=== PATIENT | male | born 1985 ===

== ENCOUNTER 2020-07-19 12:13 | Outpatient (REF) | payer MEDICAID, SELFPAY | END 2020-07-19 12:14 | disposition home or self-care (01) | LOC: HO.LAB 12:13 | PROVIDERS: Visit Provider Internal Medicine | DX: Z12.31 Encounter for screening mammogram for malignant neoplasm of breast (principal) | CPT/HCPCS: 36415; C9803; U0003 ==

== ENCOUNTER 2023-07-02 17:51 | Outpatient (REF) | payer MEDICAID, SELFPAY | END 2023-07-02 17:52 | disposition home or self-care (01) | LOC: HO.HHCLNP 17:51 | PROVIDERS: Visit Provider Student in an Organized Health Care Education/Training Program | DX: L02.91 Cutaneous abscess, unspecified (principal) | CPT/HCPCS: 87070; 87147; 87205 ==

== ENCOUNTER 2023-07-22 15:15 | Outpatient (AMB) | payer MEDICAID, SELFPAY ==
--- NOTE | 2023-07-22 15:25 | MHC.OFFVIS ---
Intake Intake Visit Reasons: Hidradenitis suppurativa Intake Note: This patient presents for an assessment for hidradenitis suppurativa. Patient c/o; left buttock, reports taking 2 rounds of abx. Labor Relations Representative Required: No Accompanied by: Self / Same As Patient Allergies iodine [IODINE] Allergy (Unknown, Unverified 07/22/23 15:32) THROAT ITCHY, itchiness ENVIRONMENTAL Allergy (Unknown, Uncoded 07/22/23 15:32) RESP SYMPTOMS SHELLFISH Allergy (Unknown, Uncoded 07/22/23 15:32) THROAT ITCHY shellfish Allergy (Unknown, Uncoded 07/22/23 15:32) itchiness Medication List - Last Reconciled 07/22/23 by Maurisio Latif MD albuterol sulfate 90 mcg/actuation (Ventolin HFA) 2 puffs inhalation Q4-6H PRN doxycycline hyclate 100 mg PO DAILY fluticasone propion-salmeterol 250-50 mcg/dose (Advair Diskus) 1 ea inhalation BID metronidazole 500 mg PO TID sulfamethoxazole-trimethoprim 800-160 mg 1 tab PO BID HPI Hidradenitis suppurativa HPI Details 38-year-old male referred for hidradenitis suppurativa. He has known hidradenitis for over 10 years. He has had multiple surgeries on his buttocks for this He says that he has had recurrence of his hidradenitis each time. He has had this chronic inflammation on the left side of his buttock with drainage for several weeks now. He describes having surgeries on this same site with Dr. Asher Shen in [place] in the past. He has not a diabetic but he has obesity. [facility] Medical History (Updated 07/22/23 @ 15:45 by Maurisio Latif MD) Hidradenitis suppurativa Morbid obesity Review of Systems Const Denies chills and Denies fever(s) Card Denies chest pain, Denies dyspnea and Denies dyspnea on exertion Resp Denies cough, Denies dyspnea and Denies dyspnea on exertion GI Denies hematochezia and Denies change in bowel habits Denies hematuria and Denies difficulty urinating Musc Denies back pain and Denies limited range of motion Neuro Denies focal weakness and Denies convulsions Psych Denies depression and Denies mood swings Physical Exam Const Other: Appears morbidly obese General: comfortable and no acute distress Orientation/consciousness: patient oriented x3 Neck Neck: Yes no lymphadenopathy Resp Auscultation: clear to auscultation bilaterally Cardio Rhythm: regular rhythm GI Palpation (GI): Soft to palpation, nontender and no guarding Skin Other: He has stigmata of hidradenitis with pigmentation of old scars on the groin he would on the left buttock area is note of a wide area of induration with multiple sinuses, scanty drainage on this sinuses, no fluctuance, with skin edema Neuro General: patient oriented x3 Assessment & Plan Assessment & Plan (1) Hidradenitis suppurativa: Code(s): L73.2 - Hidradenitis suppurativa Plan: He has severe hidradenitis of the left buttock area. I told him at this time that the area appears to be severely inflamed and indurated. This may not be a good time to excise as we may be forced to remove a large area of the buttock and subcutaneous fat. He will be prone to skin breakdown and poor wound healing. I told him that I would try to control the inflammatory process 1st with doxycycline. He is to stop his other antibiotic. He is to do warm soaks to the area. I will see him again in the office in about 3 weeks to see how he is doing. Currently there are no abscesses that need to be drained. Medications: New doxycycline hyclate 100 mg PO DAILY 14 caps 0RF Coding Level of Care Code New Pt Level 3 (52514) Diagnoses Hidradenitis suppurativa L73.2
== END 2023-07-22 15:45 | disposition home or self-care (01) ==
PROVIDERS: PCP Family Medicine; Referring Provider Family Medicine; Visit Provider Surgery
DX: L73.2 Hidradenitis suppurativa (principal)
CPT/HCPCS: 99203

== ENCOUNTER → 2023-07-22 15:15 | Outpatient (BNVA) | payer MEDICAID, SELFPAY | PROVIDERS: PCP Family Medicine; Visit Provider Surgery | DX: L73.2 Hidradenitis suppurativa (principal) | CPT/HCPCS: 99202 ==

== ENCOUNTER 2023-08-12 09:13 | Outpatient (AMB) | payer MEDICAID, SELFPAY ==
--- NOTE | 2023-08-12 09:14 | MHC.OFFVIS ---
Intake Vital Signs 08/12/23 09:18 BP 126/71 Blood Pressure Location Rt brachial Position Sitting Pulse 122 H Intake Visit Reasons: Hidradenitis suppurativa, 3 wk follow up Intake Note: This patient presents for a three week follow-up assessment for hidradenitis suppurativa. Patient c/o; reports no changes, reports no improvement, reports is taking doxycycline. 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 Accompanied by: Self / Same As Patient Allergies iodine [IODINE] Allergy (Unknown, Unverified 08/12/23 09:19) THROAT ITCHY, itchiness ENVIRONMENTAL Allergy (Unknown, Uncoded 08/12/23 09:19) RESP SYMPTOMS SHELLFISH Allergy (Unknown, Uncoded 08/12/23 09:19) THROAT ITCHY shellfish Allergy (Unknown, Uncoded 08/12/23 09:19) itchiness Medication List - Last Reconciled 08/12/23 by Maurisio Latif MD albuterol sulfate 90 mcg/actuation (Ventolin HFA) 2 puffs inhalation Q4-6H PRN doxycycline hyclate 100 mg PO DAILY fluticasone propion-salmeterol 250-50 mcg/dose (Advair Diskus) 1 ea inhalation BID metronidazole 500 mg PO TID sulfamethoxazole-trimethoprim 800-160 mg 1 tab PO BID HPI Hidradenitis suppurativa, 3 wk follow up HPI Details 38-year-old male here for follow-up for hidradenitis suppurative of this buttock. He has had a long history of this. He has undergone surgeries in [place] in the past for both the left and right buttocks with Dr. Asher Shen. He says that he has had recurrent pain and swelling on the left buttock the past couple of years. He feels that this has been worsening with regards to the extent of the swelling. He would periodically have significant swelling and drainage from the left buttock. He is aware that a wide area of the left buttock that gets swollen and indurated. [facility] Medical History Hidradenitis suppurativa Morbid obesity Review of Systems Const Denies chills and Denies fever(s) Card Denies chest pain, Denies dyspnea and Denies dyspnea on exertion Resp Denies cough, Denies dyspnea and Denies dyspnea on exertion GI Denies hematochezia and Denies change in bowel habits Denies hematuria and Denies difficulty urinating Musc Denies back pain and Denies limited range of motion Neuro Denies focal weakness and Denies convulsions Psych Denies depression and Denies mood swings Physical Exam Vital Signs: Last Vital Signs Pulse 122 H 08/12/23 09:18 BP 126/71 08/12/23 09:18 Const Other: Morbidly obese General: comfortable and no acute distress Orientation/consciousness: patient oriented x3 Neck Neck: Yes no lymphadenopathy Resp Auscultation: clear to auscultation bilaterally Cardio Rhythm: regular rhythm GI Palpation (GI): Soft to palpation, nontender and no guarding Back/Spine/Pelvis Other: On the left buttock is note of a wide area of induration with multiple sinuses there has no acute fluctuance; this area involves more than 12 cm long and about cm wide Neuro General: patient oriented x3 Assessment & Plan Assessment & Plan (1) Hidradenitis suppurativa: Code(s): L73.2 - Hidradenitis suppurativa Plan: He has a wide area of hidradenitis suppurativa on the left buttock as described above. He says that this recurrent swelling and drainage has been worsening over the years. He wants to proceed with re-excision. I had a long discussion with him about the technique of excision under local anesthesia. I told him that since the area is very wide, we may have to leave an open wound and debride as much as possible. I discussed with him the other risks of bleeding, infections, prolonged healing time, postop pain as well as the inherent risks of anesthesia. I explained to him that he will require intensive wound care with an open wound postoperatively. He will need to have frequent visits in the office for this He says he is understanding of the above and wants to proceed We will try to retrieve his records from [facility] as well. Coding Level of Care Code Est Pt Level 4 (75252) Diagnoses Hidradenitis suppurativa L73.2
[2023-08-12 09:18] VITALS: BP 126/71; PULSE 122
== END 2023-08-12 09:30 | disposition home or self-care (01) ==
PROVIDERS: PCP Family Medicine; Visit Provider Surgery
DX: L73.2 Hidradenitis suppurativa (principal)
CPT/HCPCS: 99214

== ENCOUNTER → 2023-08-12 09:13 | Outpatient (BNVA) | payer MEDICAID, SELFPAY | PROVIDERS: PCP Family Medicine; Visit Provider Surgery | DX: L73.2 Hidradenitis suppurativa (principal) | CPT/HCPCS: 99212 ==

== ENCOUNTER 2023-10-01 09:05 | Day surgery (SDC) | payer MEDICAID, SELFPAY ==
[2023-10-01] VITALS (13 sets, daily range): BP systolic 107–147; BP diastolic 54–89; PULSE 93–100; RESP 16–20; TEMP 36.3–37.1; O2SAT 94–98; BMI 43.2
--- NOTE | 2023-10-01 10:14 | PC.NURSE ---
Patient arrived to preop chewing gum. Spit out immediately. Dr. Gibson made aware. Okay per him, May proceed with surgery with no delays.
[2023-10-01] MEDS: Lactated Ringers 1,000 ML 100 ML IVCONT (10:40)
--- NOTE | 2023-10-01 10:55 | HO.ANESPROP2 ---
[facility] Active Problems Active Problems: All Active Problems (Updated 09/28/23 @ 10:51 by Chelsie Moffett RN) Hidradenitis suppurativa (Acute) Morbid obesity (Acute) Past Medical History Medical History (Updated 09/28/23 @ 10:51 by Chelsie Moffett RN) Asthma Hidradenitis suppurativa Morbid obesity Surgical History Surgical History History of surgery Hx of hernia repair History of Problems with Anesthesia: No Social History Social History Patient Tobacco Use Status: Former Tobacco user Quit Date: 2010 Tobacco use type: Cigarette Years Smoked: 10 Smoked in Last 30 Days: No Use of substances other than those prescribed or required for medical reasons: No Are you DNR?: No Advance Directives: No Advance Directives Information Provided: Yes Meds Allergies Allergy/AdvReac Type Severity Reaction Status Date / Time environmental allergies Allergy Intermediate respiratory Verified 10/01/23 09:41 symptoms iodine [IODINE] Allergy Intermediate throat Verified 10/01/23 09:41 itching shellfish derived Allergy Intermediate throat Verified 10/01/23 09:41 itching Active Medications: Current Medications Albuterol Sulfate (Albuterol Sulfate (0.083%) 2.5 Mg/3 Ml Vial.Neb) 2.5 mg INHALE ONCE PRN PRN Reason: Shortness of Breath/Wheezing Fentanyl (Fentanyl Citrate/Pf 100 Mcg/2 Ml Vial) 25 mcg IVPUSH Q5M PRN; Protocol PRN Reason: Pain, Moderate(Pain Scale 4-6) Stop: 10/01/23 14:40 Lactated Ringer's (Lr) 1,000 mls @ 100 mls/hr IVCONT .Q10H SIRENA Last Admin: 10/01/23 10:40 Dose: 100 mls/hr Ondansetron HCl (Ondansetron Hcl 4 Mg/2 Ml Vial) 4 mg IVPUSH ONCE PRN PRN Reason: Nausea and Vomiting Stop: 10/01/23 14:40 Home Medications ?Medication ?Instructions ?Recorded ?Confirmed ?Last Taken ?Type albuterol sulfate 90 mcg/actuation 2 puff inhalation Q4-6H PRN dyspnea 07/22/23 10/01/23 10/01/23 History aerosol inhaler (Ventolin HFA) fluticasone 250 mcg-salmeterol 50 1 ea inhalation BID 07/22/23 10/01/23 Unknown History mcg/dose blistr powdr for inhalation (Advair Diskus) colchicine 0.6 mg tablet 0.6 mg PO BID 10/01/23 10/01/23 Unknown History indomethacin 50 mg capsule 50 mg PO BID-TID 10/01/23 10/01/23 Unknown History Exam Height,Weight and Vital Signs: Height 6 ft Weight 144.424 kg Last Vital Signs Temp 98.7 F 10/01/23 10:01 Pulse 100 10/01/23 10:01 Resp 16 10/01/23 10:01 BP 147/89 H 10/01/23 10:01 Pulse Ox 97 10/01/23 10:01 O2 Del Method Room Air 10/01/23 10:01 Airway Mallampati Class: III TM Dist: >3cm Loose/Missing/Broken Teeth: No Heart: rrr Lungs: clear Assessment and Plan Final Anesthetic Review History of Problems with Anesthesia: No Final Preanesthetic Review: No Changes in Pt Med Stat, Meds/Allgs Chart Reviewed, Consent Obtained/Reviewed and Anes Risks/Benef Reviewed Patient Risk: Intermediate Procedure Risk: Low Anesthetic Plan Anesthetic Plan: GA Disposition: Standard PACU
[2023-10-01] MEDS: fentaNYL citrate/PF 100 MCG/2 ML VIAL 25 MCG IVPUSH ×4 (13:25→13:40)
--- NOTE | 2023-10-01 13:39 | W.PM.OPN ---
Operative Note Operative Note Date of Service: 10/01/23 Narrative: Preop diagnosis: Severe hidradenitis suppurativa, left buttock Postop diagnosis: The same Procedure: Excision and debridement of hidradenitis suppurativa, left buttock Surgeon: Maurisio Latif MD Bioinformatics Associate: AVE Bermudez The patient is a 38-year-old male, morbidly obese, with a long history of hidradenitis suppurativa on different parts of his body. He has previous excision of hidradenitis of both buttocks in [place] in the past. He He describes problems with swelling, drainage, tenderness and pain on the left buttock and he was noted to have multiple sinuses and induration with active hidradenitis. Understood the technique of excision under anesthesia and he was aware of the risks, benefits, and alternatives He was brought to the operating room. He was placed in right lateral decubitus position under general anesthesia via laryngeal mask airway. The left buttock was prepped and draped usual sterile fashion. A surgical time-out was done. The patient received cefazolin IV preoperatively Examination of the buttock reveal multiple sinuses, wide induration, redness and discharge consistent with active hidradenitis. I proceeded to make an incision on the skin around this area of induration with a blade number 15 and a blade 10. This was carried down through the full-thickness of skin and deep subcutaneous tissue to include and excise all diseased appearing subcutaneous fat . I had to use the Young scissors because of thick, fibrotic tissue from chronic inflammation. I excised an area about 13 cm x 12 cm and deep into the subcutaneous fat . There was was a lot of oozing from the entire mood in view of the chronic inflammatory changes. I had to do a lot of cauterization to control oozing areas. I copiously irrigated. I then applied wet-to-dry dressings 1 wants hemostasis was confirmed . The patient tolerated procedure well. There were no immediate complications Estimated blood loss was about 75 cc He was extubated without difficulty and transferred to the recovery room with stable vital signs Detailed wound care instructions were given to him in the recovery room.
[2023-10-01] MEDS: oxyCODONE HCl Immed Release 5 MG TABLET PO (14:05)
[2023-10-01] MEDS: Acetaminophen 325 MG TABLET 650 MG PO (14:05)
== END 2023-10-01 15:15 | disposition home or self-care (01) ==
PROVIDERS: PCP Family Medicine; Visit Provider Surgery
DX: L73.2 Hidradenitis suppurativa (principal)
CPT/HCPCS: 88305; J0330; J0690; J1100; J1596; J2250; J2405; J2704; J2795; J3010

== ENCOUNTER → 2023-10-01 09:05 | Outpatient (BNV) | payer MEDICAID, SELFPAY | PROVIDERS: PCP Family Medicine; Visit Provider Surgery | DX: L73.2 Hidradenitis suppurativa (principal) | CPT/HCPCS: 11470; 99499 ==

== ENCOUNTER 2023-10-01 14:48 | Day surgery (SDC) | payer MEDICAID, SELFPAY ==
--- NOTE | 2023-09-29 13:19 | P.CONAN_ITS ---
HPI - Anesthesia Eval Consult details Narrative: 38yo M for Left Excision and Debridement Hidradenitis buttock PMFSH Active Problems Active Problems: All Active Problems Hidradenitis suppurativa (Acute) Morbid obesity (Acute) Past Medical History Medical History (Updated 09/28/23 @ 10:51 by Chelsie Moffett RN) Asthma Hidradenitis suppurativa Morbid obesity Surgical History Surgical History (Updated 09/28/23 @ 10:48 by Chelsie Moffett RN) History of surgery Hx of hernia repair Meds Allergies Allergy/AdvReac Type Severity Reaction Status Date / Time environmental allergies Allergy Intermediate respiratory Verified 09/28/23 10:41 symptoms iodine [IODINE] Allergy Intermediate throat Unverified 09/28/23 10:41 itching shellfish derived Allergy Intermediate throat Verified 09/28/23 10:41 itching Home Medications ?Medication ?Instructions ?Recorded ?Confirmed ?Last Taken ?Type albuterol sulfate 90 mcg/actuation 2 puff inhalation Q4-6H PRN dyspnea 07/22/23 09/28/23 Unknown History aerosol inhaler (Ventolin HFA) fluticasone 250 mcg-salmeterol 50 1 ea inhalation BID 07/22/23 09/28/23 Unknown History mcg/dose blistr powdr for inhalation (Advair Diskus) metronidazole 500 mg tablet 500 mg PO TID 07/22/23 08/12/23 Unknown History sulfamethoxazole 800 1 tab PO BID 07/22/23 08/12/23 Unknown History mg-trimethoprim 160 mg tablet Exam Height,Weight and Vital Signs: Height 5 ft 11 in Assessment and Plan Assessment Anesthesia Assessment: Chart Reviewed
[2023-10-01] VITALS (10 sets, daily range): BP systolic 97–122; BP diastolic 57–83; PULSE 91–111; RESP 16–20; TEMP 36.3–37; O2SAT 95–97; BMI 43.7
--- NOTE | 2023-10-01 10:55 | P.CONAN_ITS ---
[facility] Active Problems Active Problems: All Active Problems (Updated 09/28/23 @ 10:51 by Chelsie Moffett RN) Hidradenitis suppurativa (Acute) Morbid obesity (Acute) Past Medical History Medical History (Updated 09/28/23 @ 10:51 by Chelsie Moffett RN) Asthma Hidradenitis suppurativa Morbid obesity Surgical History Surgical History History of surgery Hx of hernia repair History of Problems with Anesthesia: No Social History Social History Patient Tobacco Use Status: Former Tobacco user Quit Date: 2010 Tobacco use type: Cigarette Years Smoked: 10 Smoked in Last 30 Days: No Use of substances other than those prescribed or required for medical reasons: No Are you DNR?: No Advance Directives: No Advance Directives Information Provided: Yes Meds Allergies Allergy/AdvReac Type Severity Reaction Status Date / Time environmental allergies Allergy Intermediate respiratory Verified 10/01/23 09:41 symptoms iodine [IODINE] Allergy Intermediate throat Verified 10/01/23 09:41 itching shellfish derived Allergy Intermediate throat Verified 10/01/23 09:41 itching Active Medications: Current Medications Albuterol Sulfate (Albuterol Sulfate (0.083%) 2.5 Mg/3 Ml Vial.Neb) 2.5 mg INHALE ONCE PRN PRN Reason: Shortness of Breath/Wheezing Fentanyl (Fentanyl Citrate/Pf 100 Mcg/2 Ml Vial) 25 mcg IVPUSH Q5M PRN; Pro tocol PRN Reason: Pain, Moderate(Pain Scale 4-6) Stop: 10/01/23 14:40 Lactated Ringer's (Lr) 1,000 mls @ 100 mls/hr IVCONT .Q10H SIRENA Last Admin: 10/01/23 10:40 Dose: 100 mls/hr Ondansetron HCl (Ondansetron Hcl 4 Mg/2 Ml Vial) 4 mg IVPUSH ONCE PRN PRN Reason: Nausea and Vomiting Stop: 10/01/23 14:40 Home Medications ?Medication ?Instructions ?Recorded ?Confirmed ?Last Taken ?Type albuterol sulfate 90 mcg/actuation 2 puff inhalation Q4-6H PRN dyspnea 07/22/23 10/01/23 10/01/23 History aerosol inhaler (Ventolin HFA) fluticasone 250 mcg-salmeterol 50 1 ea inhalation BID 07/22/23 10/01/23 Unknown History mcg/dose blistr powdr for inhalation (Advair Diskus) colchicine 0.6 mg tablet 0.6 mg PO BID 10/01/23 10/01/23 Unknown History indomethacin 50 mg capsule 50 mg PO BID-TID 10/01/23 10/01/23 Unknown History Exam Height,Weight and Vital Signs: Height 6 ft Weight 144.424 kg Last Vital Signs Temp 98.7 F 10/01/23 10:01 Pulse 100 10/01/23 10:01 Resp 16 10/01/23 10:01 BP 147/89 H 10/01/23 10:01 Pulse Ox 97 10/01/23 10:01 O2 Del Method Room Air 10/01/23 10:01 Airway Mallampati Class: III TM Dist: >3cm Loose/Missing/Broken Teeth: No Heart: rrr Lungs: clear Assessment and Plan Final Anesthetic Review History of Problems with Anesthesia: No Final Preanesthetic Review: No Changes in Pt Med Stat, Meds/Allgs Chart Reviewed, Consent Obtained/Reviewed and Anes Risks/Benef Reviewed Patient Risk: Intermediate Procedure Risk: Low Anesthetic Plan Anesthetic Plan: GA Disposition: Standard PACU
--- NOTE | 2023-10-01 11:21 | P.HPSUR_ITS ---
Pre-Procedural Eval Section A - 24 Hr Update-Section A only Date of Service: 10/01/23 Section B - Complete if H&P > 30 days Chief Complaint: Hidradenitis suppurativa Details of Present Illness: Known history of hidradenitis suppurative of both buttocks. Previous excision but has recurrence on the left side. Wants to proceed with re-excision Relevant Family History (Specify if Yes): No Relevant Social History: None Present Medications: see Short Stay Collaborative assessment Medical History: Significant History (Morbid obesity) Allergies: Allergies Allergy/AdvReac Type Severity Reaction Status Date / Time environmental allergies Allergy Intermediate respiratory Verified 10/01/23 09:41 symptoms iodine [IODINE] Allergy Intermediate throat Verified 10/01/23 09:41 itching shellfish derived Allergy Intermediate throat Verified 10/01/23 09:41 itching Review of Systems Sugical H&P ROS: Negative: Constitution, Cardiovascular, Respiratory, Neurological, Psychiatric, Hem-Onc, Allergic/Immunologic, Gastrointestinal, Genitourinary, Musculoskeletal, Integumentary, Endocrine and Eyes/Ears/Nose/Throat Exam Surgical H&P Exam: Normal: HEENT, Normal: Heart, Normal: Lungs, Normal: Extremit ies, Normal: Abdomen and Normal: Neurological and Significant Findings: Skin (Wide area of induration, sinuses on left buttock) Plan Diagnosis/Plan: Unchanged I have reviewed the history and physical and performed a pertinent physical examination on my patient. No changes have occurred unless specified. Time Spent With Patient Time: Total time managing care of this patient today ____ minutes.
--- NOTE | 2023-10-01 13:39 | P.OP_ITS ---
Operative Note Operative Note Date of Service: 10/01/23 Narrative: Preop diagnosis: Severe hidradenitis suppurativa, left buttock Postop diagnosis: The same Procedure: Excision and debridement of hidradenitis suppurativa, left buttock Surgeon: Maurisio Latif MD Shorthand Teacher: AVE Bermudez The patient is a 38-year-old male, morbidly obese, with a long history of hidradenitis suppurativa on different parts of his body. He has previous excision of hidradenitis of both buttocks in [place] in the past. He He describes problems with swelling, drainage, tenderness and pain on the left buttock and he was noted to have multiple sinuses and induration with active hidradenitis. Understood the technique of excision under anesthesia and he was aware of the risks, benefits, and alternatives He was brought to the operating room. He was placed in right lateral decubitus position under general anesthesia via laryngeal mask airway. The left buttock was prepped and draped usual sterile fashion. A surgical time-out was done. The patient received cefazolin IV preoperatively Examination of the buttock reveal multiple sinuses, wide induration, redness and discharge consistent with active hidradenitis. I proceeded to make an incision on the skin around this area of induration with a blade number 15 and a blade 10. This was carried down through the full-thickness of skin and deep subcutaneous tissue to include and excise all diseased appearing subcutaneous f at . I had to use the Young scissors because of thick, fibrotic tissue from chronic inflammation. I excised an area about 13 cm x 12 cm and deep into the subcutaneous fat . There was was a lot of oozing from the entire mood in view of the chronic inflammatory changes. I had to do a lot of cauterization to control oozing areas. I copiously irrigated. I then applied wet-to-dry dressings 1 wants hemostasis was confirmed . The patient tolerated procedure well. There were no immediate complications Estimated blood loss was about 75 cc He was extubated without difficulty and transferred to the recovery room with stable vital signs Detailed wound care instructions were given to him in the recovery room.
--- NOTE | 2023-10-01 14:43 | P.EN_ITS ---
Event Note Date of Service: 10/01/23 Event Note: pt soaking dressings in PACU with blood examined - note of one bleeding area silver nitrate sticks used with good improvement however, will bring to OR to ensure good hemostasis, exmaniue wound well explained to pt the plan and technique he has given consent Time Spent With Patient Time: Total time managing care of this patient today ____ minutes.
--- NOTE | 2023-10-01 15:52 | W.PM.OPN ---
Operative Note Operative Note Date of Service: 10/01/23 Narrative: Preop diagnosis: bleeding from open wound, status post excision and debridement of left buttock hidradenitis Postop diagnosis: The same, with 2 areas with heavy oozing, controlled with electrocautery Procedure: Exploration of open wound, control of bleeding with electrocautery Surgeon: Maurisio Latif MD The patient is a 38-year-old male who had undergone excision of a large area of hidradenitis on the left buttock earlier this afternoon. He tolerated procedure well. However, prior to discharge in the PACU, he was noted to be soaking his dressings along with the bed sheet. I was able to control some of the bleeding with silver nitrate sticks. However, because of the amount of bleeding had I told him it would be best to take him back to the operating room and re-explore and control any further bleeding. He understood the technique of the procedure as well as risks, benefits, alternatives. He was brought to the operating room and placed in right lateral decubitus position under general anesthesia via endotracheal tube. The open wound in the area of the left buttock was prepped and draped. A surgical time-out was done I examined the entire area of excision. There was note of 2 areas that had been steadily oozing. I controlled this with electrocautery. I also applied a [id number] stitch at 1 of the bleeding areas to ensure good hemostasis. I copiously irrigated. We observed for about 2 minutes. Once hemostasis was confirmed, I proceeded to then apply wet-to-dry dressings. The I also applied Surgicel on the area for additional hemostasis The patient tolerated procedure well. There were no immediate complications. He probably had about a 400 cc of blood loss in the PACU He will keep him in the hospital for extended stay in view of his bleeding.
--- NOTE | 2023-10-01 16:00 | HO.ANESPROP2 ---
HPI - Anesthesia Eval Consult details Narrative: 38 yo male patient. S/p excision of hidradenitis suppurativa earlier today, with bleeding from surgical site. For exploration and control of bleeding PMFSH Active Problems Active Problems: All Active Problems Hidradenitis suppurativa (Acute) Morbid obesity (Acute) Past Medical History Medical History Asthma Hidradenitis suppurativa Morbid obesity Family History Family history of problems with anesthesia: No Surgical History Surgical History History of surgery Hx of hernia repair History of Problems with Anesthesia: No Social History Social History Patient Tobacco Use Status: Former Tobacco user Quit Date: 2010 Tobacco use type: Cigarette Years Smoked: 10 Advance Directives: No Advance Directives Information Provided: Yes Meds Allergies Allergy/AdvReac Type Severity Reaction Status Date / Time environmental allergies Allergy Intermediate respiratory Verified 10/01/23 09:41 symptoms iodine [IODINE] Allergy Intermediate throat Verified 10/01/23 09:41 itching shellfish derived Allergy Intermediate throat Verified 10/01/23 09:41 itching Active Medications: Current Medications Acetaminophen (Ofirmev) 1,000 mg in 100 mls @ 400 mls/hr IV Q6H SIRENA Stop: 10/02/23 10:14 Morphine Sulfate (Morphine Sulfate 2 Mg/Ml Cartridge) 2 mg IVPUSH Q3H PRN; Protocol PRN Reason: Pain, Severe (Pain Scale 7-10) Oxycodone HCl (Oxycodone Hcl Immed Release 5 Mg Tablet) 10 mg PO Q6H PRN PRN Reason: Pain, Moderate(Pain Scale 4-6) Home Medications ?Medication ?Instructions ?Recorded ?Confirmed ?Last Taken ?Type albuterol sulfate 90 mcg/actuation 2 puff inhalation Q4-6H PRN dyspnea 07/22/23 10/01/23 10/01/23 History aerosol inhaler (Ventolin HFA) fluticasone 250 mcg-salmeterol 50 1 ea inhalation BID 07/22/23 10/01/23 Unknown History mcg/dose blistr powdr for inhalation (Advair Diskus) colchicine 0.6 mg tablet 0.6 mg PO BID 10/01/23 10/01/23 Unknown History indomethacin 50 mg capsule 50 mg PO BID-TID 10/01/23 10/01/23 Unknown History Exam Height,Weight and Vital Signs: Height: 6' 0 Weight: 144.4kg Vital Signs Temp Pulse Resp BP Pulse Ox O2 Del Method 97.3 F 93 20 107/72 97 Room Air 10/01/23 15:15 10/01/23 15:15 10/01/23 15:15 10/01/23 15:15 10/01/23 15:15 10/01/23 15:15 Pertinent Lab Results Pertinent Lab Results: Lab Results 10/01/23 Range/Units 16:32 WBC 9.3 (4.8-10.8) X10*3/uL RBC 4.21 L (4.60-5.80) X10*6/uL Hgb 11.8 L (14.0-18.0) g/dl Hct 37.1 L (42.0-52.0) % MCV 88.1 (80.0-98.0) fL MCH 28.0 (27.0-33.0) pg MCHC 31.8 (31.0-36.0) g/dl RDW 14.8 (11.0-16.0) % Plt Count 229 (160-400) X10*3/uL MPV 10.3 (9.4-12.4) fL Absolute Nucleated RBC 0.000 (0.0-0.012) X10*3/uL Nucleated RBC % (auto) 0.0 (0.0-0.2) /100WBC Sodium 137 (135-145) mmol/L Potassium 4.1 (3.3-5.1) mmol/L Chloride 108 (96-108) mmol/L Carbon Dioxide 24 (22-29) mmol/L Anion Gap 9 L (12-20) BUN 10 (9-16) mg/dL Creatinine 0.71 (0.5-1.4) mg/dL Estim Creat Clear Calc TNP Estimated GFR > 60 Random Glucose 115 (60-115) mg/dL Calcium 8.3 L (8.4-10.2) mg/dL Airway Mallampati Class: II TM Dist: >3cm Neck ROM: Full Loose/Missing/Broken Teeth: No Heart: RRR Lungs: CTAB Assessment and Plan Assessment Anesthesia Assessment: Anesthesia Plan Discussed and Chart Reviewed Final Anesthetic Review Family History of Problems with Anesthesia: No History of Problems with Anesthesia: No NPO: Yes ASA Class: III and Emergency Final Preanesthetic Review: No Changes in Pt Med Stat, Meds/Allgs Chart Reviewed, Consent Obtained/Reviewed and Anes Risks/Benef Reviewed Patient Risk: Intermediate Procedure Risk: Intermediate Assessment/Block/Sedation in SS: Assess/Block/Sedation-SS Anesthetic Plan Anesthetic Plan: GA Disposition: Standard PACU
--- NOTE | 2023-10-01 16:03 | PM.HPGS ---
History of Present Illness History of Present Illness Date of Service: 10/01/23 Chief complaint: Hidradenitis suppurativa Narrative: Saurabh Benavidez is a 38 year old male with morbid obesity, and a long history of hidradenitis, underwent excision and debridement of severe left buttock hidradenitis afternoon. He tolerated procedure well. However while awaiting discharge in PACU, he was noted to be soaking his dressings as well as the bed sheet. I was able to control an oozing area with silver nitrate sticks. However, in view of the amount of oozing he had, I told him it would be best to re-examine the wound in the OR under anesthesia and control whatever bleeding we find with electrocautery. We therefore took him back to the operating room. There were 2 areas of bleeding that were seen that were noted to briskly ooze. We controlled this with electrocautery. I reapplied wet-to-dry dressings. In view of the amount of bleeding he had along with need for good wound care for now, I told him it would be best for him to stay at least overnight in the hospital. He lives alone so it will be difficult for him to do wound care at this stage. He had undergone excision of hidradenitis on both buttocks in the past in [place]. However, he had recurrence and significant pain, swelling and drainage from the left-sided buttock and he wanted to proceed with re-excision. Review of Systems Constitutional: Constitutional: Denies chills and Denies fever(s) Cardiovascular: Cardiovascular: Denies chest pain, Denies dyspnea and Denies dyspnea on exertion Respiratory: Respiratory: Denies cough, Denies dyspnea and Denies dyspnea on exertion Gastrointestinal: Gastrointestinal: Denies hematochezia and Denies change in bowel habits Genitourinary: Genitourinary: Denies hematuria and Denies difficulty urinating Musculoskeletal: Musculoskeletal: Denies back pain and Denies limited range of motion Neurologic: Denies focal weakness and Denies convulsions Psychiatric: Psychiatric: Denies depression and Denies mood swings PMF Past Medical History Medical History Asthma Hidradenitis suppurativa Morbid obesity Surgical History Surgical History History of surgery Hx of hernia repair Social History Social History Patient Tobacco Use Status: Former Tobacco user Quit Date: 2010 Tobacco use type: Cigarette Years Smoked: 10 Advance Directives: No Advance Directives Information Provided: Yes Meds Allergies Allergy/AdvReac Type Severity Reaction Status Date / Time environmental allergies Allergy Intermediate respiratory Verified 10/01/23 09:41 symptoms iodine [IODINE] Allergy Intermediate throat Verified 10/01/23 09:41 itching shellfish derived Allergy Intermediate throat Verified 10/01/23 09:41 itching Active Medications: Current Medications Acetaminophen (Ofirmev) 1,000 mg in 100 mls @ 400 mls/hr IV Q6H SIRENA Stop: 10/02/23 10:14 Morphine Sulfate (Morphine Sulfate 2 Mg/Ml Cartridge) 2 mg IVPUSH Q3H PRN; Protocol PRN Reason: Pain, Severe (Pain Scale 7-10) Oxycodone HCl (Oxycodone Hcl Immed Release 5 Mg Tablet) 10 mg PO Q6H PRN PRN Reason: Pain, Moderate(Pain Scale 4-6) Sodium Chloride (0.9 % Sodium Chloride Flush 3 Ml Syringe) 3 ml IVFLUSH QSHIFT [facility] Home Medications ?Medication ?Instructions ?Recorded ?Confirmed ?Last Taken ?Type albuterol sulfate 90 mcg/actuation 2 puff inhalation Q4-6H PRN dyspnea 07/22/23 10/01/23 10/01/23 History aerosol inhaler (Ventolin HFA) fluticasone 250 mcg-salmeterol 50 1 ea inhalation BID 07/22/23 10/01/23 Unknown History mcg/dose blistr powdr for inhalation (Advair Diskus) colchicine 0.6 mg tablet 0.6 mg PO BID 10/01/23 10/01/23 Unknown History indomethacin 50 mg capsule 50 mg PO BID-TID 10/01/23 10/01/23 Unknown History Physical Exam Const: Other: Morbidly obese General: comfortable and no acute distress Orientation/consciousness: patient oriented x3 Neck: Neck: Yes no lymphadenopathy Resp: Auscultation: clear to auscultation bilaterally Cardio: Rhythm: regular rhythm GI: Palpation (GI): Soft to palpation, nontender and no guarding Back/Spine/Pelvis: Other: Has a large open wound on the left buttock, 13 cm x 12 cm, deep into the gluteal fat Neuro: General: patient oriented x3 Assessment and Plan (1) Hidradenitis suppurativa: Status: Acute He had significant bleeding in the recovery room from excision of his hidradenitis suppurative a on the left buttock. This likely due to the severe inflammatory changes from his chronic hidradenitis I had controlled 2 bleeding areas in the OR with electrocautery. Again, there was note of good hemostasis afterwards on observation prior to leaving the operating room He has dressings in place. I have ordered for medications for him tonight and a set of labs. He does not want any transfusion at all. He otherwise appears to be stable. I anticipate some drop in his hemoglobin in view of the bleeding. He is currently on IV fluids. Quality Stroke Does the patient have a stroke diagnosis?: No VTE Prior VTE?: No VTE Risk Level:: Medical - low VTE Device Contraindication: Treatment Not Indicated VTE Drug Contraindication: Treatment Not Indicated Procedures Date of Service Date of Service: 10/01/23
[2023-10-01 16:41] LABS: Hematocrit 37.1 % (42.0-52.0); Hemoglobin 11.8 g/dl (14.0-18.0); Mean Corpuscular HGB Conc 31.8 g/dl (31.0-36.0); Mean Corpuscular Volume 88.1 fL (80.0-98.0); Mean Platelet Volume 10.3 fL (9.4-12.4); Platelet Count 229 X10*3/uL (160-400); Red Blood Count 4.21 X10*6/uL (4.60-5.80); Red Cell Distribution Width 14.8 % (11.0-16.0); White Blood Count 9.3 X10*3/uL (4.8-10.8)
[2023-10-01 16:53] LABS: Anion Gap 9 (12-20); Blood Urea Nitrogen 10 mg/dL (9-16); Calcium 8.3 mg/dL (8.4-10.2); Carbon Dioxide 24 mmol/L (22-29); Chloride 108 mmol/L (96-108); Estimated Glomerular Filt Rate > 60; Glucose Random 115 mg/dL (60-115); Potassium 4.1 mmol/L (3.3-5.1); Sodium 137 mmol/L (135-145)
--- NOTE | 2023-10-01 16:58 | P.EN_ITS ---
Event Note Date of Service: 10/01/23 Event Note: pt seen postop dressings dry stable VS labs ok pt appears comfortable plan to keep at least overnight for observation in view of bleeding Time Spent With Patient Time: Total time managing care of this patient today ____ minutes.
[2023-10-01] MEDS: Lactated Ringers 1,000 ML 80 ML IVCONT (19:34)
[2023-10-01] MEDS: Acetaminophen 1,000 MG/100 ML PIGGYBACK 400 MG IV (22:00)
[2023-10-02 03:50] VITALS: BP 120/72; PULSE 85; RESP 16; TEMP 36.2; O2SAT 98
[2023-10-02] MEDS: Acetaminophen 1,000 MG/100 ML PIGGYBACK 400 MG IV ×2 (03:56→10:19)
[2023-10-02 07:20] VITALS: BP 120/72; PULSE 82; RESP 18; TEMP 36.3; O2SAT 98
[2023-10-02 07:34] VITALS: PULSE 80; RESP 17; O2SAT 96
[2023-10-02] MEDS: Fluticasone Propionate 250 MCG BLST.W.DEV 1 PUFF INHALE (07:34)
[2023-10-02] MEDS: Lactated Ringers 1,000 ML 80 ML IVCONT (07:46)
[2023-10-02] MEDS: oxyCODONE HCl Immed Release 5 MG TABLET 10 MG PO ×2 (07:55→14:19)
--- NOTE | 2023-10-02 11:34 | MHC.CM.PN ---
Addendum entered by Cyndi Wu 10/02/23 16:14: PT CLEARED TO DC HOME TODAY WITH NO SERVICES Original Note: PT REPORTS HE LIVES ALONE AND IS INDEPENDENT WITH CARE HE HAS NO DME AND NO SERVICES PT SAYS HE HAS A HCP NAMING HIS FRIEND, DAVID, HIS AGENT, COPY REQUESTED PCP: CECILIA MORRIS DCP: HOME NO SERVICES VIA PRIVATE TRANSPORT
--- NOTE | 2023-10-02 14:53 | HO.POSTANES ---
Post Anesthesia Evaluation Post Anesthesia Evaluation Date of Service: 10/02/23 Vital Signs: Vital Signs Temp Pulse Resp BP Pulse Ox O2 Del Method 10/02/23 07:34 80 17 10/02/23 07:20 97.4 F 82 18 120/72 98 Room Air 10/02/23 03:50 97.1 F 85 16 120/72 98 Room Air Anesthesia: General Endotracheal-GETA Mental Status: Awake Pain Control: Satisfactory Nausea/Vomiting: None Hydration: Adequate Anesthesia-Related Issues: No Anes. Related Issues
--- NOTE | 2023-10-02 15:19 | PM.PNGS ---
Subjective Subjective Date of Service: 10/02/23 Interval history: Uneventful evening. Patient has incisional discomfort which is being treated with analgesics. He underwent dressing changes by nursing earlier today. Physical Exam Vital Signs: Vital Signs: Last Vital Signs Temp 97.4 F 10/02/23 07:20 Pulse 80 10/02/23 07:34 Resp 17 10/02/23 07:34 BP 120/72 10/02/23 07:20 Pulse Ox 98 10/02/23 07:20 O2 Del Method Room Air 10/02/23 07:20 BMI result Body Mass Index 43.7 Back/Spine/Pelvis: Other: Dressing and packing clean dry and intact with some expect did serosanguineous staining Objective Data Active Medications Albuterol Sulfate (Albuterol Sulfate 90 Mcg 8 Gm Inhaler) 2 puff INHALE RQ4H PRN PRN Reason: Shortness of Breath/Wheezing Fluticasone Propionate (Fluticasone Propionate 250 Mcg Blst.W.Dev) 1 puff INHALE RBID [facility] Last Admin: 10/02/23 07:34 Dose: 1 puff Documented By: OLI Lactated Ringer's (Lr) 1,000 mls @ 80 mls/hr IVCONT .[id number] [facility] Last Admin: 10/02/23 07:46 Dose: 80 mls/hr Documented By: SALMA Morphine Sulfate (Morphine Sulfate 2 Mg/Ml Cartridge) 2 mg IVPUSH Q3H PRN; Protocol PRN Reason: Pain, Severe (Pain Scale 7-10) Ondansetron HCl (Ondansetron Hcl 4 Mg/2 Ml Vial) 4 mg IVPUSH Q6H PRN PRN Reason: Nausea and Vomiting Oxycodone HCl (Oxycodone Hcl Immed Release 5 Mg Tablet) 10 mg PO Q6H PRN PRN Reason: Pain, Moderate(Pain Scale 4-6) Last Admin: 10/02/23 14:19 Dose: 10 mg Documented By: SALMA Sodium Chloride (0.9 % Sodium Chloride Flush 3 Ml Syringe) 3 ml IVFLUSH QSHIFT [facility] Last Admin: 10/02/23 07:46 Dose: Not Given Documented By: SALMA Non-Admin Reason: IV Running Labs 10/01/23 16:32 10/01/23 16:32 Labs: Laboratory Results - last 24 hr 10/01/23 16:32 MCV 88.1 MCH 28.0 MCHC 31.8 RDW 14.8 Plt Count 229 MPV 10.3 Absolute Nucleated RBC 0.000 Nucleated RBC % (auto) 0.0 Anion Gap 9 L Estim Creat Clear Calc TNP Estimated GFR > 60 Random Glucose 115 Calcium 8.3 L Procedures Date of Service Date of Service: 10/02/23 Progress Note: A&P Assessment and plan (1) Hidradenitis suppurativa: Status: Acute (2) Morbid obesity: Status: Acute Plan Patient wishes to be discharged home. Discharge instructions etc. will be provided. All questions answered. Patient will follow-up with Dr. Latif Time Spent With Patient Time: Total time managing care of this patient today ____ minutes. Quality Stroke Does the patient have a stroke diagnosis?: No VTE Prior VTE?: No VTE Risk Level:: Medical - low VTE Device Contraindication: Treatment Not Indicated VTE Drug Contraindication: Treatment Not Indicated
[2023-10-02 15:48] VITALS: BP 122/70; PULSE 80; RESP 16; TEMP 36.2; O2SAT 97
--- NOTE | 2023-10-02 17:38 | PC.NURSE ---
Patient discharged home self care, detailed instructions on dressing change given, patient communicated understanding. Patient was instructed to follow up with PCP and Dr. Latif. Patient was medicated for pain, IV was taken out and patient went down in the wheelchair. Patient was advised to call the doctor's office or come back to ED for any signs of infection or excessive bleeding or severe pain. Pain medication was sent to the pharmacy and confirmed that pharmacy received.
== END 2023-10-02 17:00 | disposition home or self-care (01) ==
LOC: HO.SSS 17:04 → HO.S3 17:17
PROVIDERS: PCP Family Medicine; Visit Provider Surgery
PROC: (CPT 11470; principal; 2023-10-01 15:20)
DX: L73.2 Hidradenitis suppurativa (principal); L76.22 Postprocedural hemorrhage of skin and subcutaneous tissue following other procedure; Y83.8 Other surgical procedures as the cause of abnormal reaction of the patient, or of later complication, without mention of misadventure at the time of the procedure; Y82.8 Other medical devices associated with adverse incidents; Y92.238 Other place in hospital as the place of occurrence of the external cause; E66.01 Morbid (severe) obesity due to excess calories; J45.909 Unspecified asthma, uncomplicated; Z91.041 Radiographic dye allergy status; Z87.891 Personal history of nicotine dependence; Z79.51 Long term (current) use of inhaled steroids; Z60.2 Problems related to living alone
CPT/HCPCS: 11470; 12001; 36415; 80048; 85027; 88305; 94640; J0131; J0330; J0690; J1100; J1596; J2250; J2405; J2704; J2795; J3010; J7120

== ENCOUNTER → 2023-10-01 14:48 | Outpatient (BNV) | payer MEDICAID, SELFPAY | PROVIDERS: PCP Family Medicine; Visit Provider Surgery | DX: L76.22 Postprocedural hemorrhage of skin and subcutaneous tissue following other procedure (principal); L73.2 Hidradenitis suppurativa | CPT/HCPCS: 12001; 17250; 99024; 99499 ==

== ENCOUNTER 2023-10-07 08:48 | Outpatient (AMB) | payer MEDICAID, SELFPAY ==
--- NOTE | 2023-10-07 08:48 | MHC.OFFVIS ---
Intake Intake Visit Reasons: S/P exc. & debridement of hidradenitis Lt buttock Intake Note: This patient presents for a post-op assessment status post excision and debridement of hidradenitis of left buttock. Pt c/o; reports no complaints. Miller Helper Required: No Accompanied by: Self / Same As Patient Allergies environmental allergies Allergy (Intermediate, Verified 10/07/23 08:52) respiratory symptoms iodine [IODINE] Allergy (Intermediate, Verified 10/07/23 08:52) throat itching shellfish derived Allergy (Intermediate, Verified 10/07/23 08:52) throat itching HPI S/P exc. & debridement of hidradenitis Lt buttock HPI Details He had undergone excision and debridement of hidradenitis of the left buttock in the OR last October 01, 2023. He had to go back to the OR that same afternoon because of bleeding from the debridement site He was discharged on postop day 1. He has had no problems at home. He says he feels well overall. He says he has been doing his dressing changes daily. [facility] Medical History Asthma Hidradenitis suppurativa Morbid obesity Surgical History Hx of surgical procedure History of surgery Hx of hernia repair Social History Household Members: None Housing: Apartment Do you presently have visiting nurse or other home services: No Patient Tobacco Use Status: Former Tobacco user Quit Date: 2010 Tobacco use type: Cigarette Years Smoked: 10 Second Hand Smoke Exposure: No service: No Review of Systems Const Denies chills and Denies fever(s) Card Denies chest pain, Denies dyspnea and Denies dyspnea on exertion Resp Denies cough, Denies dyspnea and Denies dyspnea on exertion GI Denies hematochezia and Denies change in bowel habits Denies hematuria and Denies difficulty urinating Musc Denies back pain and Denies limited range of motion Neuro Denies focal weakness and Denies convulsions Psych Denies depression and Denies mood swings Physical Exam Const General: comfortable and no acute distress Back/Spine/Pelvis Other: Debridement site on left buttock clean, good granulation, no pus Assessment & Plan Assessment & Plan (1) Hidradenitis suppurativa: Code(s): L73.2 - Hidradenitis suppurativa Plan: Status post debridement in the OR. He is doing very well. His excision site is clean. I changed his dressings and applied wet to dry. He is to continue to do wet-to-dry daily dressing changes at home. I will see him again for another wound check in 2 weeks. Coding Level of Care Code Global (65581) Diagnoses Hidradenitis suppurativa L73.2
== END 2023-10-07 09:08 | disposition home or self-care (01) ==
PROVIDERS: PCP Family Medicine; Visit Provider Surgery
DX: L73.2 Hidradenitis suppurativa (principal)
CPT/HCPCS: 99024

== ENCOUNTER → 2023-10-07 08:48 | Outpatient (BNVA) | payer MEDICAID, SELFPAY | PROVIDERS: PCP Family Medicine; Visit Provider Surgery | DX: L73.2 Hidradenitis suppurativa (principal) | CPT/HCPCS: 99212 ==

== ENCOUNTER 2023-10-21 15:46 | Outpatient (AMB) | payer MEDICAID, SELFPAY ==
--- NOTE | 2023-10-21 15:47 | MHC.OFFVIS ---
Intake Visit Reasons: S/P exc. & debridement of hidradenitis Lt buttock Intake Note: This patient presents for a follow-up status post exc. & debridement of hidradenitis Lt buttock. Pt c/o; reports no complaints. Process Improvement Analyst Required: No Accompanied by: Self / Same As Patient Allergies environmental allergies Allergy (Intermediate, Verified 10/21/23 15:50) respiratory symptoms iodine [IODINE] Allergy (Intermediate, Verified 10/21/23 15:50) throat itching shellfish derived Allergy (Intermediate, Verified 10/21/23 15:50) throat itching HPI HPI S/P exc. & debridement of hidradenitis Lt buttock: Details: He is here for follow-up after debridement of the left buttock for hidradenitis. He denies any new complaints. He does state that the lower part of the left buttock seems to have gotten inflamed as well and had drained last week. [facility] Medical History Asthma Hidradenitis suppurativa Morbid obesity Surgical History Hx of surgical procedure History of surgery Hx of hernia repair Social History Household Members: None Housing: Apartment Do you presently have visiting nurse or other home services: No Patient Tobacco Use Status: Former Tobacco user Quit Date: 2010 Tobacco use type: Cigarette Years Smoked: 10 Second Hand Smoke Exposure: No service: No Review of Systems Const Denies chills and Denies fever(s) Physical Exam Const Other: Morbidly obese General: comfortable and no acute distress Back/Spine/Pelvis Other: Open wound from the debridement site is smaller, clean, granulating well but there was note of induration above and below this with some drainage from the lower part Assessment & Plan Assessment & Plan (1) Hidradenitis suppurativa: Code(s): L73.2 - Hidradenitis suppurativa Category: Medical Plan: I have changes dressings. The debridement site has contracted significantly in the area is smaller. However, he has other inflammatory changes on the left buttock above and below this. I have advised him on doing good wound care for the open wound. I told him that he may need to have debridement down the line for the lower part of the buttock and the upper part. I explained to him that most likely, more definitive treatment would be systemic with biologics. I have reminded him about seeing Dermatology with regards to this I will see him again in the office in about 3 weeks. Coding Level of Care Code Global (45183) Diagnoses Hidradenitis suppurativa L73.2
== END 2023-10-21 16:07 | disposition home or self-care (01) ==
PROVIDERS: PCP Family Medicine; Visit Provider Surgery
DX: L73.2 Hidradenitis suppurativa (principal)
CPT/HCPCS: 99024

== ENCOUNTER → 2023-10-21 15:46 | Outpatient (BNVA) | payer MEDICAID, SELFPAY | PROVIDERS: PCP Family Medicine; Visit Provider Surgery | DX: L73.2 Hidradenitis suppurativa (principal) | CPT/HCPCS: 99212 ==

== ENCOUNTER 2023-11-05 15:58 | Emergency (ER) | payer MEDICAID, SELFPAY ==
--- NOTE | ~2023-11-05 | CT_ITS ---
EXAMINATION: CT PELVIS WITHOUT CONTRAST CLINICAL INFORMATION: Suprapubic abscess COMPARISON: None available. TECHNIQUE: Helical scanning was performed with submillimeter collimation through the pelvis. Sagittal and coronal multiplanar 2-D reconstructions were obtained. This CT examination was performed using dose optimization techniques as appropriate, variously including the following: *Automated exposure control *Adjustment of mA and/or kV according to patient size (this includes techniques or standardized protocols for targeted exams where dose is matched to indication/reason for exam; i.e. extremities or head) *Use of iterative reconstruction technique DLP: 1000 mGy-cm FINDINGS: PELVIS: Visualized pelvic viscera structures are within normal limits. MUSCULOSKELETAL: Proximately 2.8 x 4.5 x 5.9 cm (AP by TV by CC) subcutaneous abscess within the suprapubic soft tissues with surrounding inflammatory changes and skin thickening. Multilevel degenerative changes of the lumbar spine, worst at L5-S1. CT/CT pelvis wo IV con IMPRESSION: Suprapubic soft tissue abscess described above.
[2023-11-05 16:08] VITALS: BP 154/89; PULSE 104; RESP 20; TEMP 36.2; O2SAT 99; BMI 41.9
[2023-11-05 20:04] LABS: MANUAL DIFF FLAG NO
[2023-11-05 20:06] LABS: Basophils Absolute Auto 0.1 X10*3/uL (0.0-0.2); Basophils Percent Auto 1.3 % (0-2); Eosinophils Absolute Auto 0.3 X10*3/uL (0.0-0.4); Eosinophils Percent Auto 4.1 % (0-4); Hematocrit 37.9 % (42.0-52.0); Imm Gran Abs Auto 0.03 X10*3/uL (0.00-0.03); Imm Gran Pct Auto 0.4 % (0.0-0.4); Lymphocytes Absolute Auto 2.1 X10*3/uL (1.2-4.9); Lymphocytes Percent Auto 24.9 % (20-40); Mean Corpuscular HGB Conc 31.7 g/dl (31.0-36.0); Mean Corpuscular Hemoglobin 27.3 pg (27.0-33.0); Mean Corpuscular Volume 86.1 fL (80.0-98.0); Mean Platelet Volume 10.4 fL (9.4-12.4); Monocytes Absolute Auto 0.7 X10*3/uL (0.1-1.2); Monocytes Percent Auto 7.9 % (2-11); Neutrophils Absolute Auto 5.1 x10*3/uL (2.0-8.3); Neutrophils Percent Auto 61.4 % (45-73); Platelet Count 274 X10*3/uL (160-400); Red Cell Distribution Width 15.4 % (11.0-16.0); White Blood Count 8.3 X10*3/uL (4.8-10.8)
[2023-11-05 20:15] LABS: Lactic Acid 0.9 mmol/L (0.5-2.0)
[2023-11-05] MEDS: 0.9 % Sodium Chloride 1,000 ML 999 ML IV (20:16)
[2023-11-05] MEDS: Ketorolac Tromethamine 30 MG/ML VIAL IVPUSH ×2 (20:16→23:03)
[2023-11-05 20:18] LABS: Anion Gap 15 (12-20); Blood Urea Nitrogen 9 mg/dL (9-16); Carbon Dioxide 20 mmol/L (22-29); Chloride 106 mmol/L (96-108); Estimated Glomerular Filt Rate > 60; Glucose Random 90 mg/dL (60-115); Potassium 3.9 mmol/L (3.3-5.1); Sodium 137 mmol/L (135-145)
[2023-11-05] MEDS: Albuterol Sulfate 90 MCG 8 GM INHALER 2 PUFF INHALE (20:24)
[2023-11-05 20:26] VITALS: PULSE 104; RESP 18; O2SAT 94
--- NOTE | 2023-11-05 20:34 | ED.GENADULT ---
HPI - General Adult General Chief complaint: Skin/Abscess/Foreign Body Stated complaint: abscess in waist area, in extreme pain Time Seen by Provider: 11/05/23 19:20 Source: patient, RN notes reviewed and old records reviewed Mode of arrival: ambulatory Limitations: no limitations History of Present Illness HPI narrative: 38-year-old male past medical history significant for obesity and hidradenitis presents for evaluation abscess to his suprapubic region He reports the area has been painful for over a month but worse over the last 4 days Denies any fevers, chills He reports that the pain is now significant enough to interfere with his activities of daily living He reports that he has not diabetic He has no other complaints or concerns at this time Related Data Home Medications ?Medication ?Instructions ?Recorded ?Confirmed albuterol sulfate 90 mcg/actuation 2 puff inhalation Q4-6H PRN dyspnea 07/22/23 10/01/23 aerosol inhaler (Ventolin HFA) fluticasone 250 mcg-salmeterol 50 1 ea inhalation BID 07/22/23 10/01/23 mcg/dose blistr powdr for inhalation (Advair Diskus) colchicine 0.6 mg tablet 0.6 mg PO BID 10/01/23 10/01/23 indomethacin 50 mg capsule 50 mg PO BID-TID 10/01/23 10/01/23 Previous Rx's ?Medication ?Instructions ?Recorded ABD pads #30 ea 10/01/23 gauze pads #60 ea 10/01/23 oxycodone-acetaminophen 5 mg-325 1 tab PO Q4-6H PRN pain #30 tabs 10/01/23 mg tablet (Percocet) oxycodone-acetaminophen 5 mg-325 1 tab PO Q4-6H PRN pain #30 tabs 10/01/23 mg tablet (Percocet) oxycodone-acetaminophen 5 mg-325 1 tab PO Q4-6H PRN pain #30 tabs 10/02/23 mg tablet 6x6 fluff gauze #100 ea 10/26/23 non-adherent bandage 5 X 9 #100 ea 10/26/23 (Curity Abdominal Pad) cephalexin 500 mg capsule 500 mg PO QID #28 caps 11/05/23 doxycycline hyclate 100 mg tablet 100 mg PO BID #14 tabs 11/05/23 Allergies Allergy/AdvReac Type Severity Reaction Status Date / Time environmental allergies Allergy Intermediate respiratory Verified 11/05/23 16:11 symptoms iodine [IODINE] Allergy Intermediate throat Verified 11/05/23 16:11 itching shellfish derived Allergy Intermediate throat Verified 11/05/23 16:11 itching Review of Systems Constitutional: Constitutional: Denies body ache(s), Denies chills and Denies fever(s) Eyes: Eyes: Denies blurry vision ENT: Denies vertigo Cardiovascular: Cardiovascular: Denies chest pain and Denies dyspnea Respiratory: Respiratory: Denies cough and Denies dyspnea Gastrointestinal: Gastrointestinal: Denies abdominal pain, Denies nausea and Denies vomiting Musculoskeletal: Musculoskeletal: Denies back pain Integumentary/Breasts: Skin/Breast: Reports skin swelling and Reports sores Comments: Reports abscess to suprapubic region Neurologic: Denies vertigo PMFSH Past Medical History Medical History Asthma Hidradenitis suppurativa Morbid obesity Surgical History Hx of surgical procedure History of surgery Hx of hernia repair Social History Social History Household Members: None Housing: Apartment Do you presently have visiting nurse or other home services: No Patient Tobacco Use Status: Former Tobacco user Quit Date: 2010 Tobacco use type: Cigarette Years Smoked: 10 Second Hand Smoke Exposure: No Advance Directives: No Advance Directives Information Provided: No Do you have a plan to hurt others: No Plan service: No Physical Exam ED Vital Signs: Vital Signs - 24 hr 11/05/23 16:08 11/05/23 20:26 Temperature 97.1 F Pulse Rate 104 H 104 H Respiratory Rate 20 18 Blood Pressure 154/89 H Pulse Oximetry 99 Oxygen Delivery Method Room Air BMI result Body Mass Index 41.9 Const General: healthy appearing, comfortable, no acute distress, alert and awake Nutritional Appearance: well nourished Orientation/consciousness: patient oriented x3 HENMT Head: Yes normocephalic and Yes atraumatic Eyes Eyelids: Yes eyelids normal Conjunctivae: conjunctivae normal Sclerae: sclerae normal Corneas: corneas normal Pupils: Equal, round and reactive pupils present EOM: EOMs intact bilaterally Neck Neck: Yes full ROM Resp Effort & Inspection: normal respiratory effort, able to speak in complete sentences and not labored GI Inspection: No distended Palpation (GI): Soft to palpation, not firm, nontender, no guarding and not rigid Skin Other: Patient has a large, approximately 4 x 4 cm area of induration with erythema and tenderness palpation. There is minimal fluctuance to this region in the suprapubic area just left of center. General skin exam: elasticity normal Neuro General: patient oriented x3 Cranial nerves: Yes Equal, round and reactive pupils present and Yes Bilaterally intact EOM present Cognition (Neuro): normal cognition Extrem Other: Moving all extremities well without any obvious deformities Medications Administered Discontinued Medications Generic Name Dose Route Start Last Admin Trade Name Freq PRN Reason Stop Dose Admin Albuterol Sulfate 2 puff 11/05/23 20:11 11/05/23 20:24 Albuterol Sulfate 90 Mcg 8 Gm Inhaler INHALE 11/05/23 20:12 2 puff ONCE ONE Administration Sodium Chloride 1,000 mls @ 999 mls/hr 11/05/23 19:30 11/05/23 22:22 Ns IV 11/05/23 20:30 Infused .Q1H1M SIRENA Infusion Ketorolac Tromethamine 30 mg 11/05/23 19:25 11/05/23 20:16 Ketorolac Tromethamine 30 Mg/Ml Vial IVPUSH 11/05/23 19:26 30 mg ONCE ONE Administration Lidocaine/Epinephrine 10 ml 11/05/23 22:07 11/05/23 22:22 Lidocaine Hcl 1%/Epi 1:100,000 10 Ml Vial INFILTRATI 11/05/23 22:08 10 ml ONCE ONE Administration Procedures Abscess I/D Site: other (Lower abdominal wall) Local Anesthetic: lidocaine 1% and with epi Amount of anesthesia used (mL): 4 Technique: needle aspiration and incised with blade Amount of fluid expressed (mL): 18 Sent for culture/gram staining?: Yes Irrigation: Yes Packing used?: [email or web address] Complications: pain Medical Decision Making Medical Decision Making [facility] Narrative: Patient appears to have a very large abscess that has been present for over a month. His vital signs are significant for slight hypertension but he is afebrile. Plan for labs including blood cultures and lactic acid as well as a CT scan to evaluate the extent of the abscess. Differential Diagnosis Differential Diagnoses: The differential diagnosis associated with the presentation includes Abscess Cellulitis Hidradenitis Ingrown hair Sebaceous cyst Inguinal hernia Lab Data MDM Lab Attestation statement: I reviewed the patient's lab results. No leukocytosis. The patient does have a mild anemia that is consistent his most recent labs from September 302023. This is a normocytic anemia. No significant chemistry abnormalities. Lactic acid is normal at 0.9 11/05/23 19:59 11/05/23 19:59 Labs: Lab Results 11/05/23 Range/Units 19:59 WBC 8.3 (4.8-10.8) X10*3/uL RBC 4.40 L (4.60-5.80) X10*6/uL Hgb 12.0 L (14.0-18.0) g/dl Hct 37.9 L (42.0-52.0) % MCV 86.1 (80.0-98.0) fL MCH 27.3 (27.0-33.0) pg MCHC 31.7 (31.0-36.0) g/dl RDW 15.4 (11.0-16.0) % Plt Count 274 (160-400) X10*3/uL MPV 10.4 (9.4-12.4) fL Immature Gran % (Auto) 0.4 (0.0-0.4) % Neut % (Auto) 61.4 (45-73) % Lymph % (Auto) 24.9 (20-40) % [place] % (Auto) 7.9 (2-11) % Eos % (Auto) 4.1 H (0-4) % Baso % (Auto) 1.3 (0-2) % Lymph # (Auto) 2.1 (1.2-4.9) X10*3/uL [place] # (Auto) 0.7 (0.1-1.2) X10*3/uL Eos # (Auto) 0.3 (0.0-0.4) X10*3/uL Baso # (Auto) 0.1 (0.0-0.2) X10*3/uL Abs Immat Gran (auto) 0.03 (0.00-0.03) X10*3/uL Absolute Neuts (auto) 5.1 (2.0-8.3) x10*3/uL Absolute Nucleated RBC 0.000 (0.0-0.012) X10*3/uL Nucleated RBC % (auto) 0.0 (0.0-0.2) /100WBC Sodium 137 (135-145) mmol/L Potassium 3.9 (3.3-5.1) mmol/L Chloride 106 (96-108) mmol/L Carbon Dioxide 20 L (22-29) mmol/L Anion Gap 15 (12-20) BUN 9 (9-16) mg/dL Creatinine 0.73 (0.5-1.4) mg/dL Estim Creat Clear Calc 199.0 Estimated GFR > 60 Random Glucose 90 (60-115) mg/dL Lactic Acid 0.9 (0.5-2.0) mmol/L Calcium 9.0 D (8.4-10.2) mg/dL Discharge Plan Discharge Clinical Impression: Abscess Patient Disposition: Home, Self-Care Instructions: Incision and Drainage (ED) Additional Instructions: You had an abscess drained today. The packing can be removed in 48-72 hours Take both antibiotics as prescribed Apply warm compresses every 4 hours Follow-up with your general surgeon Return for new or worsening symptoms Prescriptions: New cephalexin 500 mg capsule 500 mg PO QID Qty: 28 0RF doxycycline hyclate 100 mg tablet 100 mg PO BID Qty: 14 0RF No Action (DME) ABD pads 6x9 See Rx Instructions .Route .MEDSUPPLY Qty: 30 0RF Rx Instructions: As directed (DME) gauze pads 4x4 See Rx Instructions .Route .MEDSUPPLY Qty: 60 0RF Rx Instructions: As directed (DME) Curity Abdominal Pad 5 X 9 bandage See Rx Instructions .ROUTE .MEDSUPPLY Qty: 100 2RF Rx Instructions: As directed (DME) 6x6 fluff gauze 6x6 See Rx Instructions .Route .MEDSUPPLY Qty: 100 0RF Rx Instructions: As directed oxycodone-acetaminophen [Percocet] 5-325 mg tablet 1 tab PO Q4-6H PRN (Reason: pain) Qty: 30 0RF Rx Instructions: Partial Fill upon patient request. oxycodone-acetaminophen 5-325 mg tablet 1 tab PO Q4-6H PRN (Reason: pain) Qty: 30 0RF Rx Instructions: Partial Fill upon patient request. indomethacin 50 mg capsule 50 mg PO BID-TID colchicine 0.6 mg tablet 0.6 mg PO BID oxycodone-acetaminophen [Percocet] 5-325 mg tablet 1 tab PO Q4-6H PRN (Reason: pain) Qty: 30 0RF Rx Instructions: Partial Fill upon patient request. albuterol sulfate [Ventolin HFA] 90 mcg/actuation HFA aerosol inhaler 2 puff inhalation Q4-6H PRN (Reason: dyspnea) fluticasone propion-salmeterol [Advair Diskus] 250-50 mcg/dose blister with device 1 ea inhalation BID Print Language: Iraqi
[2023-11-05] MEDS: Lidocaine HCl 1%/Epi 1:100,000 10 ML VIAL INFILTRATI (22:22)
--- NOTE | 2023-11-05 22:29 | PC.NURSE ---
pt medicated with additional torodol at his own request p/t I and D of abscess on abd fold.
[2023-11-05] MEDS: Doxycycline Monohydrate 100 MG CAPSULE PO (23:02)
[2023-11-05] MEDS: cephALEXin 500 MG CAPSULE PO (23:03)
[2023-11-05 23:11] VITALS: BP 142/92; PULSE 86; RESP 18; TEMP 36.2; O2SAT 100
== END 2023-11-05 23:12 | disposition home or self-care (01) ==
PROVIDERS: Physician Assistant; Emergency Provider Internal Medicine; PCP Family Medicine
DX: L02.818 Cutaneous abscess of other sites (principal); J45.909 Unspecified asthma, uncomplicated; L73.2 Hidradenitis suppurativa; Z79.899 Other long term (current) drug therapy
CPT/HCPCS: 10060; 36415; 72192; 80048; 83605; 85025; 87040; 87070; 87205; 94640; 96361; 96374; 96376; 99284; J1885

== ENCOUNTER 2023-11-22 15:50 | Outpatient (AMB) | payer MEDICAID, SELFPAY ==
--- NOTE | 2023-11-22 15:53 | MHC.OFFVIS ---
Vital Signs 11/22/23 15:57 Height 6 ft Weight 308 lb 10.354 oz BMI 41.9 Intake Visit Reasons: S/P exc. & debridement of hidradenitis Lt buttock Intake Note: This patient presents for an assessment for a wound check status post excision and debridement of hidradenitis suppurativa of the left buttock. Patient c/o; reports no complaints. 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 & debridement of hidradenitis Lt buttock: Details: He is here for follow-up after excision and debridement of hidradenitis of his left buttock. He says the wound has decreased in size significantly. He denies any new complaints. He describes some scanty drainage from the area. The pain has improved significantly. [facility]LY [facility] Medical History Asthma Hidradenitis suppurativa Morbid obesity Surgical History Hx of surgical procedure History of surgery Hx of hernia repair Social History Household Members: None Housing: Apartment Do you presently have visiting nurse or other home services: No Patient Tobacco Use Status: Former Tobacco user Tobacco use type: Cigarette Years Smoked: 10 Second Hand Smoke Exposure: No service: No Review of Systems Const Denies chills and Denies fever(s) Card Denies chest pain, Denies dyspnea and Denies dyspnea on exertion Resp Denies cough, Denies dyspnea and Denies dyspnea on exertion GI Denies hematochezia and Denies change in bowel habits Denies hematuria and Denies difficulty urinating Musc Denies back pain and Denies limited range of motion Neuro Denies focal weakness and Denies convulsions Psych Denies depression and Denies mood swings Physical Exam Vital Signs: BMI result Body Mass Index 41.9 Const General: comfortable and no acute distress Back/Spine/Pelvis Other: Wound on the excision site has now decreased in size significantly and is down to about a cm wide and about 4 cm long. The base is clean and granulating well Assessment & Plan Assessment & Plan (1) Hidradenitis suppurativa: Code(s): L73.2 - Hidradenitis suppurativa Category: Medical Plan: Status post excision and debridement. The wound surface area has decreased in size significantly. It is now down to a narrow wound with good healthy granulation tissue He is to continue good wound care . I will do another wound check in about a month. Coding Level of Care Code Global (89345) Diagnoses Hidradenitis suppurativa L73.2
[2023-11-22 15:57] VITALS: BMI 41.9
== END 2023-11-22 16:22 | disposition home or self-care (01) ==
PROVIDERS: PCP Family Medicine; Visit Provider Surgery
DX: L73.2 Hidradenitis suppurativa (principal)
CPT/HCPCS: 99024

== ENCOUNTER → 2023-11-22 15:50 | Outpatient (BNVA) | payer MEDICAID, SELFPAY | PROVIDERS: PCP Family Medicine; Visit Provider Surgery | DX: L73.2 Hidradenitis suppurativa (principal) | CPT/HCPCS: 99212 ==

== ENCOUNTER 2024-01-05 15:45 | Outpatient (AMB) | payer MEDICAID, SELFPAY ==
--- NOTE | 2024-01-05 15:54 | A.OFFVIS_ITS ---
Vital Signs 01/05/24 15:55 Height 6 ft Weight 308 lb 10.354 oz BMI 41.9 Intake Visit Reasons: S/P exc. & debridement of hidradenitis Lt buttock Intake Note: This patient presents for a follow-up assessment for status post excision & debridement of hidradenitis Lt buttock. Patient c/o; reports no complaints. 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 Accompanied by: Self / Same As Patient Allergies environmental allergies Allergy (Intermediate, Verified 01/05/24 15:56) respiratory symptoms iodine [IODINE] Allergy (Intermediate, Verified 01/05/24 15:56) throat itching shellfish derived Allergy (Intermediate, Verified 01/05/24 15:56) throat itching Medication List - Last Reconciled 01/05/24 by Maurisio Latif MD [6x6 fluff gauze As directed] [ABD pads As directed] albuterol sulfate 90 mcg/actuation (Ventolin HFA) 2 puffs inhalation Q4-6H PRN cephalexin 500 mg PO QID colchicine 0.6 mg PO BID doxycycline hyclate 100 mg PO BID fluticasone propion-salmeterol 250-50 mcg/dose (Advair Diskus) 1 ea inhalation BID [gauze pads As directed] indomethacin 50 mg PO BID-TID non-adherent bandage (Curity Abdominal Pad) As directed oxycodone-acetaminophen 5-325 mg (Percocet) 1 tab PO Q4-6H PRN oxycodone-acetaminophen 5-325 mg (Percocet) 1 tab PO Q4-6H PRN oxycodone-acetaminophen 5-325 mg 1 tab PO Q4-6H PRN HPI HPI S/P exc. & debridement of hidradenitis Lt buttock: Details: He is here for follow-up after debridement of hidradenitis on the left buttock. He says the wound continues to heal and he says this is down to a small open wound. He denies any new complaints. He does state that she still occasionally have small amounts of drainage from the area. [facility] Medical History Asthma Hidradenitis suppurativa Morbid obesity Surgical History Hx of surgical procedure History of surgery Hx of hernia repair Social History Household Members: None Housing: Apartment Do you presently have visiting nurse or other home services: No Patient Tobacco Use Status: Former Tobacco user Tobacco use type: Cigarette Years Smoked: 10 Second Hand Smoke Exposure: No service: No Review of Systems Const Denies chills and Denies fever(s) Card Denies chest pain at rest Resp Denies cough GI Denies abdominal pain Physical Exam Vital Signs: BMI result Body Mass Index 41.9 Const Other: Morbidly obese General: comfortable and no acute distress Resp Effort & Inspection: normal respiratory effort Cardio Rate: regular rate Back/Spine/Pelvis Other: Debridement site on the left buttock almost completely well healed, small area of residual open wound, clean Assessment & Plan Assessment & Plan (1) Hidradenitis suppurativa: Code(s): L73.2 - Hidradenitis suppurativa Category: Medical Plan: The debridement site from September, continues to heal well. There is now a small area of residual open wound. He is to continue the same wound care with good good hygiene We will see him again later this year for follow-up to see how is doing. He says that he wants another area of the left buttock excised because of an excessive skin?. Coding Level of Care Code Est Pt Level 2 (36741) Diagnoses Hidradenitis suppurativa L73.2
[2024-01-05 15:55] VITALS: BMI 41.9
== END 2024-01-05 16:13 | disposition home or self-care (01) ==
PROVIDERS: PCP Family Medicine; Visit Provider Surgery
DX: L73.2 Hidradenitis suppurativa (principal)
CPT/HCPCS: 99212

== ENCOUNTER → 2024-01-05 15:45 | Outpatient (BNVA) | payer MEDICAID, SELFPAY | PROVIDERS: PCP Family Medicine; Visit Provider Surgery | DX: Z48.817 Encounter for surgical aftercare following surgery on the skin and subcutaneous tissue (principal) | CPT/HCPCS: 99212 ==

== ENCOUNTER 2024-04-06 15:42 | Outpatient (AMB) | payer MEDICAID, SELFPAY ==
--- NOTE | 2024-04-06 15:48 | MHC.OFFVIS ---
Vital Signs 04/06/24 15:52 Height 6 ft Weight 303 lb BMI 41.1 Intake Visit Reasons: one month follow-up, wound check Intake Note: This patient presents for one month follow-up, wound check. Pt c/o; reports no complaints at this time. 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 Accompanied by: Self / Same As Patient Allergies environmental allergies Allergy (Intermediate, Verified 04/06/24 15:53) respiratory symptoms iodine [IODINE] Allergy (Intermediate, Verified 04/06/24 15:53) throat itching shellfish derived Allergy (Intermediate, Verified 04/06/24 15:53) throat itching Medication List - Last Reconciled 04/06/24 by Maurisio Latif MD [6x6 fluff gauze As directed] [ABD pads As directed] albuterol sulfate 90 mcg/actuation (Ventolin HFA) 2 puffs inhalation Q4-6H PRN cephalexin 500 mg PO QID colchicine 0.6 mg PO BID doxycycline hyclate 100 mg PO BID fluticasone propion-salmeterol 250-50 mcg/dose (Advair Diskus) 1 ea inhalation BID [gauze pads As directed] indomethacin 50 mg PO BID-TID non-adherent bandage (Curity Abdominal Pad) As directed oxycodone-acetaminophen 5-325 mg (Percocet) 1 tab PO Q4-6H PRN oxycodone-acetaminophen 5-325 mg (Percocet) 1 tab PO Q4-6H PRN oxycodone-acetaminophen 5-325 mg 1 tab PO Q4-6H PRN HPI HPI one month follow-up, wound check: Details: He is here for follow-up after excision of severe active hidradenitis of the left buttock. He denies any new complaints. Denies any new drainage. He is a little worried about an area of the right buttock however where he also has these cystic induration. [facility]LY [facility] Medical History Asthma Hidradenitis suppurativa Morbid obesity Surgical History Hx of surgical procedure History of surgery Hx of hernia repair Social History Household Members: None Housing: Apartment Do you presently have visiting nurse or other home services: No Patient Tobacco Use Status: Former Tobacco user Tobacco use type: Cigarette Years Smoked: 10 Second Hand Smoke Exposure: No service: No Review of Systems Const Denies chills and Denies fever(s) Card Denies chest pain, Denies dyspnea and Denies dyspnea on exertion Resp Denies cough, Denies dyspnea and Denies dyspnea on exertion GI Denies hematochezia and Denies change in bowel habits Denies hematuria and Denies difficulty urinating Musc Denies back pain and Denies limited range of motion Neuro Denies focal weakness and Denies convulsions Psych Denies depression and Denies mood swings Physical Exam Vital Signs: BMI result Body Mass Index 41.1 Const Other: Morbidly obese General: comfortable and no acute distress Resp Effort & Inspection: normal respiratory effort Cardio Rate: regular rate Back/Spine/Pelvis Other: Excision site on the left buttock is completely well healed; he does point to an area of excess skin above the excised area which she says bothers him a little bit because of the floppy nature of the area; he also points to an area of cystic induration of the right buttock which appears to be a stigmata of hidradenitis; this is dry and not erythematous Assessment & Plan Assessment & Plan (1) Hidradenitis suppurativa: Code(s): L73.2 - Hidradenitis suppurativa Category: Medical Plan: He has previous excision sites are well healed now. There is no residual open wound. He is worried about an area of cystic induration in the right buttock. This seems to be consistent with non active hidradenitis He wants to be referred to a table top tile setter so we will send him a referral for Dr. Ibanez for consideration of biologic treatment. He will see him again in about 6 months he says. Coding Level of Care Code Est Pt Level 3 (33456) Diagnoses Hidradenitis suppurativa L73.2
[2024-04-06 15:52] VITALS: BMI 41.1
== END 2024-04-06 16:07 | disposition home or self-care (01) ==
PROVIDERS: PCP Family Medicine; Visit Provider Surgery
DX: L73.2 Hidradenitis suppurativa (principal)
CPT/HCPCS: 99213

== ENCOUNTER → 2024-04-06 15:42 | Outpatient (BNVA) | payer MEDICAID, SELFPAY | PROVIDERS: PCP Family Medicine; Visit Provider Surgery | DX: L73.2 Hidradenitis suppurativa (principal); Z98.890 Other specified postprocedural states | CPT/HCPCS: 99212 ==

== ENCOUNTER 2024-11-09 16:02 | Outpatient (AMB) | payer MEDICAID, SELFPAY ==
--- NOTE | 2024-11-09 16:03 | MHC.OFFVIS ---
Vital Signs 11/09/24 16:07 Height 6 ft Weight 310 lb BMI 42.0 BP 147/96 H Blood Pressure Location Rt brachial Position Sitting Pulse 106 H Intake Visit Reasons: hidradenitis Intake Note: Patient here to follow up Hidradenitis Suppurative on Lt buttock. Patient c/o: lt buttock area still oozes. Speech Assistant Required: No Accompanied by: Self / Same As Patient Allergies environmental allergies Allergy (Intermediate, Verified 11/09/24 16:07) respiratory symptoms iodine [IODINE] Allergy (Intermediate, Verified 11/09/24 16:07) throat itching shellfish derived Allergy (Intermediate, Verified 11/09/24 16:07) throat itching Medication List - Last Reconciled 11/13/24 by Maurisio Latif MD [6x6 fluff gauze As directed] [ABD pads As directed] albuterol sulfate 90 mcg/actuation (Ventolin HFA) 2 puffs inhalation Q4-6H PRN colchicine 0.6 mg PO BID fluticasone propion-salmeterol 250-50 mcg/dose (Advair Diskus) 1 ea inhalation BID [gauze pads As directed] indomethacin 50 mg PO BID-TID non-adherent bandage (Curity Abdominal Pad) As directed HPI HPI hidradenitis: Details: He is here for follow-up for his known hidradenitis. He describes periodic drainage and induration on the area towards the left hip but he has also other multiple areas around the buttocks and the torso. He has no new complaints otherwise. [facility] Medical History Asthma Hidradenitis suppurativa Morbid obesity Surgical History Hx of surgical procedure History of surgery Hx of hernia repair Social History Household Members: None Housing: Apartment Do you presently have visiting nurse or other home services: No Patient Tobacco Use Status: Former Tobacco user Tobacco use type: Cigarette Years Smoked: 10 Second Hand Smoke Exposure: No service: No Review of Systems Const Denies chills and Denies fever(s) Card Denies chest pain, Denies dyspnea and Denies dyspnea on exertion Resp Denies cough, Denies dyspnea and Denies dyspnea on exertion GI Denies hematochezia and Denies change in bowel habits Denies hematuria and Denies difficulty urinating Musc Denies back pain and Denies limited range of motion Neuro Denies focal weakness and Denies convulsions Psych Denies depression and Denies mood swings Physical Exam Vital Signs: Last Vital Signs Pulse 106 H 11/09/24 16:07 BP 147/96 H 11/09/24 16:07 BMI result Body Mass Index 42.0 Const General: comfortable and no acute distress Nutritional Appearance: obese Orientation/consciousness: patient oriented x3 Neck Neck: Yes no lymphadenopathy Resp Effort & Inspection: normal respiratory effort Auscultation: clear to auscultation bilaterally Cardio Rate: regular rate Rhythm: regular rhythm GI Palpation (GI): Soft to palpation, nontender and no guarding Back/Spine/Pelvis Other: Left buttock area with note of some mild induration, no fluctuance, no active drainage; multiple other areas of similar induration although much smaller are seen on other parts of his torso Neuro General: patient oriented x3 Assessment & Plan Assessment & Plan (1) Hidradenitis suppurativa: Code(s): L73.2 - Hidradenitis suppurativa Category: Medical Plan: He currently does not have any drainable abscess. There was no need for I and D on any of his areas of hidradenitis at this time He does have multiple areas and hold him that he may benefit from systemic treatment with a biologic. I therefore told him that he would be best to consult the wastewater treatment plant supervisor. He had given him the name of Dr. Ibanez in [place] for this. He says that he already had called and is actually scheduled to see her He can see me in the office on a p.r.n. basis. Coding Level of Care Code Est Pt Level 3 (98246) Diagnoses Hidradenitis suppurativa L73.2
--- OUTSIDE RECORDS SUMMARY | 2024-11-09 16:05 | XMS_ITS | Encounter Summary ---
Author Organization [employer] Address [address] [facility] [address] [place] [address] Care Team Providers Care Dental Chair Assembler Name Role Phone Concepcion Ratliff MD Primary Care Provider [phone] Encounter Details Date Type Department Care Team (Late st Contact Info) Description 07/02/2023 Orders Only [facility] [address] [place] [address] Concepcion Ratliff MD [address] [place] [address] Hidradenitis suppurativa (Primary Dx); Left buttock abscess Social History Tobacco Use Types Packs/Day Years Used Date Smoking Tobacco: Never Passive Smoke Exposure: Never Smokeless Tobacco: Never Sex and Gender Information Value Date Recorded Sex Assigned at Male 04/20/2022 10:18 AM EDT Legal Sex Male 10:18 AM EDT Gender Identity Male 04/20/2022 10:18 AM EDT Sexual Orientation Choose not to disclose 2021 10:18 AM EDT documented as of this encounter Miscellaneous Notes * Result Encounter Note - Nohelia Magana MD - 07/02/2023 9:04 AM EST Please can you check w pt if he had buttock abscess drained in ER? He is growing multiple bacteria and needs I&D as rec at last apt Thanks documented in this encounter Plan of Treatment Not on file documented as of this encounter Procedures Procedure Name Priority Date/Time Associated Diagnosis Comments GRAM STAIN Routine 07/02/2023 12:10 PM EST Hidradenitis suppurativa documented in this encounter Results * Gram stain (07/02/2023 12:10 PM EST) 07/02/2023 12:1 0 PM EST 07/03/2023 7:14 AM EST Comment:Skin Narrative [facility] - 07/06/2023 8:38 AM EST Source: Buttock null ABSCESS UNSPECIFIED Gram stain results: No polys 2+ epithelial cells 4+ Gram-positive cocci 4+ Gram-negative rods Source: Buttock null ABSCESS UNSPECIFIED Routine Culture Report - external Routine Culture 2+ Mixed leo Strep agalactiae (Grp B) Quant Org ID 2+ Susc N/A Susceptibility not routinely performed on this isolate. Specimen Source: Skin (scrapings) us Nohelia Magana MD LAB MICROBIOLOGY - GENERAL ORDERABLES Final Result Performing Organization Address City/State/[facility] Co de Phone Number [facility] [address] [place] [phone] documented in this encounter Visit Diagnoses Diagnosis Hidradenitis suppurativa- Primary Hidradenitis Left buttock abscess documented in this encounter Care Teams Dental Chair Assembler Relationship Specialty Start Date End Date Concepcion Ratliff MD [address] [place] [id number] PCP - General Family Medicine 06/21/18 documented as of this encounter
[2024-11-09 16:07] VITALS: BP 147/96; PULSE 106; BMI 42.0
== END 2024-11-10 09:02 | disposition home or self-care (01) ==
LOC: HO.HGS 16:03
PROVIDERS: PCP Family Medicine; Visit Provider Surgery
DX: L73.2 Hidradenitis suppurativa (principal)
CPT/HCPCS: 99213

== ENCOUNTER → 2024-11-09 16:02 | Outpatient (BNVA) | payer MEDICAID, SELFPAY | PROVIDERS: PCP Family Medicine; Visit Provider Surgery | DX: L73.2 Hidradenitis suppurativa (principal) | CPT/HCPCS: 99212 ==

== ENCOUNTER 2025-02-20 15:22 | Outpatient (REF) | payer MEDICAID, SELFPAY ==
--- NOTE | ~2025-02-20 | XR_ITS ---
EXAMINATION: XR FOOT, RIGHT CLINICAL INFORMATION: right foot bunion. Hx gout COMPARISON: None available. TECHNIQUE: AP, lateral, and oblique views of the right foot. FINDINGS: Hallux valgus deformity is present. There is lateral subluxation of the sesamoids. There is a bipartite medial sesamoid. There is a bilobed marginal erosion involving the medial neck of the first metatarsal with overhanging corticated margins . Marginal osteophyte is present along the lateral aspect of the first MTP joint. There is mild focal swelling and increased density in the soft tissues medial to the first MTP joint. Dorsal marginal osteophytes are present in the midfoot. XR/XR foot RT min 3V IMPRESSION: Hallux valgus deformity with severe lateral subluxation sesamoids. 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 Chronic erosion involving the medial first metatarsal head is consistent with history of gout. There is either soft tissue swelling or a gouty tophus in the soft tissues medial to the first metatarsal head. Mild osteoarthritis in the dorsal midfoot. Electronically signed by: Kadeem Varela MD 02/20/2025 04:17 PM EDT
--- NOTE | ~2025-02-20 | XR_ITS ---
EXAMINATION: XR FOOT, LEFT CLINICAL INFORMATION: bunion. Hx gout COMPARISON: None available. TECHNIQUE: AP, lateral, and oblique views of the left foot. FINDINGS: There is hallux valgus deformity. There is a small marginal ossified involving the lateral first metatarsal head. There is a small lobulated lucency in the medial base of the proximal phalanx of the great toe on the AP view that could represent a marginal erosion. There is an accessory ossification involving the medial plantar base of the distal phalanx of the great toe. There is a bipartite medial sesamoid. There is mild lateral subluxation of the chest was. There is an accessory ossification medial to the PIP joint of the fifth digit. There is an accessory ossification center at the base of the fifth metatarsal, adjacent distal Small marginal osteophytes are present in the dorsal midfoot and medial ankle joint. Cuboid. XR/XR foot LT min 3V IMPRESSION: Hallux valgus deformity with mild lateral subluxation of the sesamoids. Questionable marginal erosion involving the medial base of the first proximal phalanx could be related to gout or other inflammatory arthropathy. 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 Electronically signed by: Kadeem Varela MD 02/20/2025 04:22 PM EDT
--- OUTSIDE RECORDS SUMMARY | 2025-02-20 14:30 | XMS_ITS | Encounter Summary ---
Author Organization [employer] Address [address] [facility] 7 [place] [address] Care Team Providers Care Crm Marketing Analyst Name Role Phone Concepcion Ratliff MD Primary Care Provider [phone] Encounter Details Date Type Department Care Team (Late st Contact Info) Description 02/20/2025 2:30 PM EDT Office Visit [facility] [address] [place] [address] Concepcion Ratliff MD [address] [place] [address] Routine general medical examination at a health care facility (Primary Dx); Bunion of right foot; Bunion of left foot; Hypertriglyceridemia; Hyperuricemia; Hypertension, unspecified type; Chronic gouty arthritis; Routine screening for STI (sexually transmitted infection) Social History Tobacco Use Types Packs/Day Years Used Date Smoking Tobacco: Never Passive Smoke Exposure: Never Smokeless Tobacco: Never Depression Answer Date Recorded Patient Health Questionnaire-9 Score 0 02/20/2025 Patient Health Questionnaire-9 Score 0 02/20/2025 Last PHQ-9: Questionnaire Data Not on file 0 02/20/2025 Housing Stability Answer Date Recorded What is your housing situation today? I have william sánchez 02/20/[address] you li ve. Do you have problems with any of the following? None of the above 02/20/2025 Food Insecurity Answer Date Recorded Within the past 12 months, y ou worried that your food would run out before you got money to buy more: Never True 02/20/2025 Within the past 12 months,th e food you bought just didn't last and you didn't have enough money to get more: Never True 07/2024 Transportation Answer Date Recorded In the past 12 months, has l ack of transportation kept you from medical appts, meetings, work or from getting things needed for daily living? No 02/20/2025 Utilities Answer Date Recorded In the past 12 months, has t he electric, gas, oil or water company threatened to shut off services in your home? No 02/20/2025 Depression Answer Date Recorded Patient Health Questionnaire-2 Score 0 02/20/2025 Internet Access Answer Date Recorded Internet Access Q1 Yes 02/20/2025 Internet Access Q2 Not on file 02/20/2025 Sex and Gender Information Value Date Recorded Sex Assigned at Male 04/20/2022 10:18 AM EDT Legal Sex Male 10:18 AM EDT Gender Identity Male 04/20/2022 10:18 AM EDT Sexual Orientation Choose not to disclose 2021 10:18 AM EDT Occupation Industry Job Start Date Job End Date Not on file Not on file Not on file Not on file documented as of this encounter Last Filed Vital Signs Vital Sign Reading Time Taken Comments Blood Pressure 150/100 02/20/2025 2:48 PM EDT Pulse 107 02/20/2025 2:48 PM EDT Temperature 35.8 C (96.4 F) 02/20/2025 2:48 PM EDT Respiratory Rate 22 02/20/2025 2:48 PM EDT Oxygen Saturation 97% 02/20/2025 2:48 PM EDT Inhaled Oxygen Concentration - - Weight 142 kg (312 lb 12.8 oz) 02/20/2025 2:48 P M EDT Height 182.9 cm (6') 02/20/2025 2:48 PM EDT Body Mass Index 42.42 02/20/2025 2:48 PM EDT documented in this encounter Functional Status * Over the past 2 weeks, how often have you been bothered by any of the following problems? Question Answer Date of Assessment Author Patient Health Questionnaire -2 Score 0 02/20/2025 2:47 PM EDT Eun Gibbs MA * Little interest or pleasure in doing things Answer Date of Assessment Author Not at all 02/20/2025 2:47 PM EDT Lakshmi Gibbs MA * Feeling down, depressed, or hopeless Answer Date of Assessment Author Not at all 02/20/2025 2:47 PM EDT Lakshmi Gibbs MA * Trouble falling or staying asleep, or sleeping too much Answer Date of Assessment Author Not at all 02/20/2025 2:47 PM EDT Lakshmi Gibbs MA * Feeling tired or having little energy Answer Date of Assessment Author Not at all 02/20/2025 2:47 PM EDT Lakshmi Gibbs MA * Poor appetite or overeating Answer Date of Assessment Author Not at all 02/20/2025 2:47 PM EDT Lakshmi Gibbs MA * Feeling bad about yourself - or that you are a failure or have let yourself or your family down Answer Date of Assessment Author Not at all 02/20/2025 2:47 PM EDT Lakshmi Gibbs MA * Trouble concentrating on things, such as reading the newspaper or watching television Answer Date of Assessment Author Not at all 02/20/2025 2:47 PM EDT Lkashmi Gibbs MA * Moving or speaking so slowly that other people could have noticed? Or the opposite - being so fidgety or restless that you have been moving around a lot more than usual. Answer Date of Assessment Author Not at all 02/20/2025 2:47 PM EDT Lakshmi Gibbs MA * Thoughts that you would be better off or hurting yourself in some way Answer Date of Assessment Author Not at all 02/20/2025 2:47 PM ENOCT Laskhmi Gibbs MA * Patient Health Questionnaire-9 Score Answer Date of Assessment Author 0 02/20/2025 2:47 PM EDT Lakshmi Gibbs MA documented as of this encounter Plan of Treatment Upcoming Encounters Date Type Department Care Team (Late st Contact Info) Description 04/03/2025 3:45 PM EDT Office Visit [facility] [address] [place] [address] Concepcion Ratliff MD [address] [place] [address] Scheduled Orders Name Type Priority Associated Diagnoses Orde r Schedule CBC auto differential Lab Routine Chronic gouty arthritis Expected: 02/20/2025 (Approximate), Expires: 02/20/2026 Comprehensive Metabolic Panel Lab Routine Hypertension, unspecified type Expected: 02/20/2025 (Approximate), Expires: 02/20/2026 Lipid Panel with Reflex to Direct LDL Lab Routine Hypertriglyceridemia Expected: 02/20/2025 (Approximate), Expires: 02/20/2026 TSH with Reflex to Free T4 Lab Routine Hypertension, unspecified type Expected: 02/20/2025 (Approximate), Expires: 02/20/2026 Uric acid Lab Routine Hyperuricemia Chronic gouty arthritis Expected: 02/20/2025, Expires: 02/20/2026 C-reactive Protein Lab Routine Chronic gouty arthritis Expected: 02/20/2025 (Approximate), Expires: 02/20/2026 Sed Rate by Modified [place] Lab Routine Chronic gouty arthritis Expected: 02/20/2025 (Approximate), Expires: 02/20/2026 Hepatitis B Core Antibody, Total Lab Routine Routine screening for STI (sexually transmitted infection) Expected: 02/20/2025 (Approximate), Expires: 02/20/2026 Hepatitis B Surface Antibody, Qualitative Lab Routine Routine screening for STI (sexually transmitted infection) Expected: 02/20/2025 (Approximate), Expires: 02/20/2026 Hepatitis B surface antigen, EIA Lab Routine Routine screening for STI (sexually transmitted infection) Expected: 02/20/2025 (Approximate), Expires: 02/20/2026 Hepatitis C Antibody with Reflex to HCV, RNA, Quantitative, Real-Time PCR Lab Routine Routine screening for STI (sexually transmitted infection) Expected: 02/20/2025 (Approximate), Expires: 02/20/2026 HIV-1/2 Antigen and Antibodies, Fourth Generation, with Reflexes Lab Routine Routine screening for STI (sexually transmitted infection) Expected: 02/20/2025 (Approximate), Expires: 02/20/2026 Syphilis Screen Lab Routine Routine screening for STI (sexually transmitted infection) Expected: 02/20/2025 (Approximate), Expires: 02/20/2026 documented as of this encounter Procedures Procedure Name Priority Date/Time Associated Diagnosis Comments XR FOOT 3+ VIEWS LEFT Routine 02/20/2025 3:09 PM EDT Bunion of left foot XR FOOT 3+ VIEWS RIGHT Routine 02/20/2025 3:07 PM EDT Bunion of right foot documented in this encounter Results * XR Foot 3+ Views Left (02/20/2025 3:09 PM EDT) Anatomical Region Laterality Modality Lower Extremities, Foot Left Radiogra phic Imaging 02/20/2025 3:09 PM EDT Narrative 02/20/2025 4:25 PM EDT [address] [address] XRay Report Signed Patient: Saurabh Benavidez MR#: [id number] : 1985 Acct:[id number] Age/Sex: 40 / M ADM Date: 02/20/25 Loc: .HHCX Attending Dr: Concepcion Ratliff MD Ordering Physician: Concepcion Ratliff MD Date of Service: 02/20/25 Procedure(s): XR foot LT min 3V Accession Number(s): [id number] cc: Concepcion Ratliff MD Reason for Exam: bunion. Hx gout EXAMINATION: XR FOOT, LEFT CLINICAL INFORMATION: bunion. Hx gout COMPARISON: None available. TECHNIQUE: AP, lateral, and oblique views of the left foot. FINDINGS: There is hallux valgus deformity. There is a small marginal ossified involving the lateral first metatarsal head. There is a small lobulated lucency in the medial base of the proximal phalanx of the great toe on the AP view that could represent a marginal erosion. There is an accessory ossification involving the medial plantar base of the distal phalanx of the great toe. There is a bipartite medial sesamoid. There is mild lateral subluxation of the chest was. There is an accessory ossification medial to the PIP joint of the fifth digit. There is an accessory ossification center at the base of the fifth metatarsal, adjacent distal Small marginal osteophytes are present in the dorsal midfoot and medial ankle joint. Cuboid. XR/XR foot LT min 3V IMPRESSION: Hallux valgus deformity with mild lateral subluxation of the sesamoids. Questionable marginal erosion involving the medial base of the first proximal phalanx could be related to gout or other inflammatory arthropathy. 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 Electronically signed by: Kadeem Varela MD 02/20/2025 04:22 PM EDT RP Dictated By: Kadeem Varela MD Signed By: <Electronically signed by Kadeem Varela MD in OV> 02/20/25 1622 DD/ 1509 TD/TT: 02/20/25 1510 Muff Winder: Procedure Note Donotuseinterpreter, Image - 02/20/[address] [address] XRay Report Signed Patient: Saurabh Benavidez AMR#: [id number] : 1985Acct:[id number] Age/Sex: 40 / MADM Date: 02/20/25 Loc: .HHCX Attending Dr: Concepcion Ratliff MD Ordering Physician: Concepcion Ratliff MD Date of Service: 02/20/25 Procedure(s): XR foot LT min 3V Accession Number(s): [id number] cc: Concepcion Ratliff MD Reason for Exam: bunion. Hx gout EXAMINATION: XR FOOT, LEFT CLINICAL INFORMATION: bunion. Hx gout COMPARISON: None available. TECHNIQUE: AP, lateral, and oblique views of the left foot. FINDINGS: There is hallux valgus deformity. There is a small marginal ossified involving the lateral first metatarsal head. There is a small lobulated lucency in the medial base of the proximal phalanx of the great toe on the AP view that could represent a marginal erosion. There is an accessory ossification involving the medial plantar base of the distal phalanx of the great toe. There is a bipartite medial sesamoid. There is mild lateral subluxation of the chest was. There is an accessory ossification medial to the PIP joint of the fifth digit. There is an accessory ossification center at the base of the fifth metatarsal, adjacent distal Small marginal osteophytes are present in the dorsal midfoot and medial ankle joint. Cuboid. XR/XR foot LT min 3V IMPRESSION: Hallux valgus deformity with mild lateral subluxation of the sesamoids. Questionable marginal erosion involving the medial base of the first proximal phalanx could be related to gout or other inflammatory arthropathy. 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 Electronically signed by: Kadeem Varela MD 02/20/2025 04:22 PM EDT Dictated By: Kadeem Varela MD Signed By: <Electronically signed by Kadeem Varela MD in OV> 02/20/25 1622 DD/ 1509 TD/TT: 02/20/25 1510 Muff Winder: us Concepcion Ratliff MD IMG XR PROCEDURES Final Result * XR Foot 3+ Views Right (02/20/2025 3:07 PM EDT) Anatomical Region Laterality Modality Lower Extremities, Foot Right Radiogra phic Imaging 02/20/2025 3:07 PM EDT Narrative 02/20/2025 4:20 [place] [address] XRay Report Signed Patient: Saurabh Benavidez MR#: [id number] : 1985 Acct:[id number] Age/Sex: 40 / M ADM Date: 02/20/25 Loc: HO.HHCX Attending Dr: Concepcion Ratliff MD Ordering Physician: Concepcion Ratliff MD Date of Service: 02/20/25 Procedure(s): XR foot RT min 3V Accession Number(s): [id number] cc: Concepcion Ratliff MD Reason for Exam: right foot bunion. Hx gout EXAMINATION: XR FOOT, RIGHT CLINICAL INFORMATION: right foot bunion. Hx gout COMPARISON: None available. TECHNIQUE: AP, lateral, and oblique views of the right foot. FINDINGS: Hallux valgus deformity is present. There is lateral subluxation of the sesamoids. There is a bipartite medial sesamoid. There is a bilobed marginal erosion involving the medial neck of the first metatarsal with overhanging corticated margins . Marginal osteophyte is present along the lateral aspect of the first MTP joint. There is mild focal swelling and increased density in the soft tissues medial to the first MTP joint. Dorsal marginal osteophytes are present in the midfoot. XR/XR foot RT min 3V IMPRESSION: Hallux valgus deformity with severe lateral subluxation sesamoids. 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 Chronic erosion involving the medial first metatarsal head is consistent with history of gout. There is either soft tissue swelling or a gouty tophus in the soft tissues medial to the first metatarsal head. Mild osteoarthritis in the dorsal midfoot. Electronically signed by: Kadeem Varela MD 02/20/2025 04:17 PM EDT Dictated By: Kadeem Varela MD Signed By: <Electronically signed by Kadeem Varela MD in OV> 02/20/25 1617 DD/ 1507 TD/TT: 02/20/25 1510 Muff Winder: Procedure Note Donotuseinterpreter, Image - 02/20/2025 [place] [address] XRay Report Signed Patient: Saurabh Benavidez AMR#: [id number] : 1985Acct:[id number] Age/Sex: 40 / MADM Date: 02/20/25 Loc: HO.HHCX Attending Dr: Concepcion Ratliff MD Ordering Physician: Concepcion Ratliff MD Date of Service: 02/20/25 Procedure(s): XR foot RT min 3V Accession Number(s): [id number] cc: Concepcion Ratliff MD Reason for Exam: right foot bunion. Hx gout EXAMINATION: XR FOOT, RIGHT CLINICAL INFORMATION: right foot bunion. Hx gout COMPARISON: None available. TECHNIQUE: AP, lateral, and oblique views of the right foot. FINDINGS: Hallux valgus deformity is present. There is lateral subluxation of the sesamoids. There is a bipartite medial sesamoid. There is a bilobed marginal erosion involving the medial neck of the first metatarsal with overhanging corticated margins . Marginal osteophyte is present along the lateral aspect of the first MTP joint. There is mild focal swelling and increased density in the soft tissues medial to the first MTP joint. Dorsal marginal osteophytes are present in the midfoot. XR/XR foot RT min 3V IMPRESSION: Hallux valgus deformity with severe lateral subluxation sesamoids. 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 Chronic erosion involving the medial first metatarsal head is consistent with history of gout. There is either soft tissue swelling or a gouty tophus in the soft tissues medial to the first metatarsal head. Mild osteoarthritis in the dorsal midfoot. 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
--- OUTSIDE RECORDS SUMMARY | 2025-02-20 16:28 | XMS_ITS | Encounter Summary ---
Author Organization [employer] Address [address] [facility] 7t [place] [address] Care Team Providers Care Outreach Team Member Name Role Phone Concepcion Ratliff MD Primary Care Provider [phone] Encounter Details Date Type Department Care Team (Late Contact Info) Description 07/02/2023 Orders Only [facility] [address] [place] [address] Concepcion Ratliff MD [address] [place] [address] Hidradenitis suppurativa (Primary Dx); Left buttock abscess [...] documented in this encounter Plan of Treatment Upcoming Encounters Date Type Department Care Team (Late Contact Info) Description 04/03/2025 3:45 PM EDT Office Visit [facility] [address] [place] [address] Concepcion Ratliff MD [address] [place] [address] documented as of this encounter Procedures Procedure Name Priority Date/Time Associated Diagnosis Comments GRAM STAIN Routine 07/02/2023 12:10 PM EST Hidradenitis suppurativa documented in this encounter Results * Gram stain (07/02/2023 12:10 PM EST) 07/02/2023 12:1 0 PM EST 07/03/2023 7:14 AM EST Comment:Skin Narrative [facility] - 07/06/2023 8:38 AM EST Source: Buttock null ABSCESS UNSPECIFIED Gram stain results: No polys 2+ epithelial cells 4+ Gram-positive cocci 4+ Gram-negative rods Source: Buttock null ABSCESS UNSPECIFIED Routine Culture Report - external Routine Culture 2+ Mixed leo Strep agalactiae (Grp B) Quant Org ID 2+ Susc N/A Susceptibility not routinely performed on this isolate. Specimen Source: Skin (scrapings) Nohelia Magana MD LAB MICROBIOLOGY - GENERAL ORDERABLES Final Result [facility] [address] [place] [address] [phone] documented in this encounter Visit Diagnoses Diagnosis Hidradenitis suppurativa- Primary Hidradenitis Left buttock abscess documented in this encounter Care Teams Outreach Team Member Relationship Specialty Start Date End Date Concepcion Ratliff MD [address] [place] [address] PCP - General Family Medicine 06/21/18 documented as of this encounter
--- OUTSIDE RECORDS SUMMARY | 2025-02-20 16:28 | XMS_ITS | Encounter Summary ---
Author Organization [employer] Address [address] [facility] [address] 7[address] [place] [address] Care Team Providers Care Manager Company Name Role Phone Concepcion Ratliff MD Primary Care Provider [phone] Reason for Visit * Reason Comments Med Refill Encounter Details Date Type Department Care Team (Late st Contact Info) Description 08/28/2024 Refill [facility] [address] [place], [place] [phone] Concepcion Ratliff MD [address] [place] [address] Moderate asthma without complication, unspecified whether persistent Social History Tobacco Use Types Packs/Day Years Used Date Smoking Tobacco: Never Passive Smoke Exposure: Never Smokeless Tobacco: Never Housing Stability Answer Date Recorded What is your housing situation today? I have william sánchez 08/02/[address] you li ve. Do you have problems with any of the following? Mold 08/02/2023 Food Insecurity Answer Date Recorded Within the past 12 months, y ou worried that your food would run out before you got money to buy more: Sometimes True 2023 Within the past 12 months,th e food you bought just didn't last and you didn't have enough money to get more: Sometimes True 08/02/2023 Transportation Answer Date Recorded In the past 12 months, has l ack of transportation kept you from medical appts, meetings, work or from getting things needed for daily living? No 08/02/2023 Utilities Answer Date Recorded In the past 12 months, has t he electric, gas, oil or water company threatened to shut off services in your home? No 08/02/2023 Sex and Gender Information Value Date Recorded Sex Assigned at Male 04/20/2022 10:18 AM EDT Legal Sex Male 10:18 AM EDT Gender Identity Male 04/20/2022 10:18 AM EDT Sexual Orientation Choose not to disclose 2021 10:18 AM EDT Occupation Industry Job Start Date Job End Date Not on file Not on file Not on file Not on file documented as of this encounter Plan of Treatment Upcoming Encounters Date Type Department Care Team (Late st Contact Info) Description 04/03/2025 3:45 PM EDT Office Visit [facility] MED[facility] [address] [place] [address] Concepcion Ratliff MD [address] [place] [address] documented as of this encounter Visit Diagnoses Diagnosis Moderate asthma without complication, unspecified whether persistent documented in this encounter Care Teams Manager Company Relationship Specialty Start Date End Date Concepcion Ratliff MD [address] [place] [address] PCP - General Family Medicine 06/21/18 documented as of this encounter
--- OUTSIDE RECORDS SUMMARY | 2025-02-20 16:28 | XMS_ITS | Encounter Summary ---
Author Organization [employer] Address [address] [place] [address] 7 [place] [address] Care Team Providers Care Molder Bench Name Role Phone Concepcion Ratliff MD Primary Care Provider [phone] Encounter Details Date Type Department Care Team (Latest Contact Info) Description 05/15/2019 Abstract [facility] Dental, Provider, DDS Social History Tobacco Use Types Packs/Day Years Used Date Smoking Tobacco: Never Assessed Sex and Gender Information Value Date Recorded Sex Assigned at Male 04/20/2022 10:18 AM EDT Legal Sex Male 10:18 AM EDT Gender Identity Male 04/20/2022 10:18 AM EDT Sexual Orientation Choose not to disclose 2021 10:18 AM EDT documented as of this encounter Plan of Treatment Upcoming Encounters Date Type Department Care Team (Late st Contact Info) Description 04/03/2025 3:45 PM EDT Office Visit [facility] [address] [place] [address] Concepcion Ratliff MD [address] [place] [address] documented as of this encounter Visit Diagnoses Not on filedocumented in this encounter Care Teams Molder Bench Relationship Specialty Start Date End Date Concepcion Ratliff MD [address] [place], [place] [phone] PCP - General Family Medicine 06/21/18 documented as of this encounter
--- OUTSIDE RECORDS SUMMARY | 2025-02-20 16:28 | XMS_ITS | Encounter Summary ---
Author Organization [employer] Address [address] [place] [address] [place] [address] Care Team Providers Care Heel Sewer Name Role Phone Concepcion Ratliff MD Primary Care Provider [phone] Reason for Visit * Reason Comments Med Change Request Encounter Details Date Type Department Care Team (Late st Contact Info) Description 07/02/2023 Refill [facility] [address] [place] [address] Nohelia Farias MD [address] [place] [address] Social History Tobacco Use Types Packs/Day Years [...] Description 04/03/2025 3:45 PM EDT Office Visit [facility] [address] [place] [address] Concepcion Ratliff MD [address] [place] [address] documented as of this encounter Visit Diagnoses Not on filedocumented in this encounter Care Teams Heel Sewer Relationship Specialty Start Date End Date Concepcion Ratliff MD [address] [place] [address] PCP - General Family Medicine 06/21/18 documented as of this encounter
--- OUTSIDE RECORDS SUMMARY | 2025-02-20 16:28 | XMS_ITS | Clinical Summary ---
Author Organization [employer] Address [address] [place] [address] 7 [place] [address] Care Team Providers Care Livestock Slaughterer Name Role Phone Concepcion Ratliff MD Primary Care Provider [phone] Allergies No known active allergies Medications Gauze Pads & Dressings (Surgical Dressing) 5 X9 pads 1 Units 3 times daily. 100 each 07/02/19 24 Active colchicine 0.6 MG tabletIndicatio ns:Gout, unspecified cause, unspecified chronicity, unspecified site TAKE 1 TABLET BY MOUTH TWICE DAILY 60 tablet 3 06/19/20 24 Active allopurinol (Zyloprim) 300 MG tabletIndicatio ns:Gout, unspecified cause, unspecified chronicity, unspecified site TAKE 1 TABLET BY MOUTH EVERY DAY 90 tablet 3 09/08/19 25 Active indomethacin (Indocin) 50 MG capsuleIndicati ons:Gout, unspecified cause, unspecified chronicity, unspecified site TAKE 1 CAPSULE BY MOUTH 2 OR 3 TIMES DAILY WITH FOOD 40 capsule 3 09/08/19 25 Active budesonide-form oterol (Symbicort) 160-4.5 MCG/ACT inhaler May use 2 puffs every 4 hours as needed for wheezing. Maximum 12 puffs per day. Rinse mouth with water after use. Do not swallow. 1 each 11 02/21/20 25 Active Blood Pressure Monitoring (Blood Pressure Kit) kit Check blood pressure once daily and as needed 1 kit 1 02/21/20 25 Active olmesartan (Benicar) 5 MG tablet Take 1 tablet (5 mg) by mouth Once per day. 90 tablet 3 02/21/20 25 026 Active Blood Pressure Monitor kit Check blood pressure once daily and as needed 1 kit 08/11/19 24 025 Discontinued(Re order (will not trigger notification to Pharmacy)) Fluticasone-Mina meterol (Advair Diskus) 250-50 MCG/ACT aerosol powderIndicatio ns:Moderate persistent asthma without complication Inhale 1 puff 2 times daily. INHALE 1 PUFF BY MOUTH TWICE DAILY. RINSE MOUTH AFTER USING. 60 each 5 10/11/19 25 025 Discontinued(Me d list cleanup (will not trigger notification to Pharmacy)) albuterol (Ventolin HFA) 108 (90 Base) MCG/ACT inhalerIndicati ons:Moderate asthma without complication, unspecified whether persistent INHALE 2 PUFFS BY MOUTH EVERY 4 TO 6 HOURS NEEDED FOR WHEEZING OR SHORTNESS OF BREATH. DO NOT EXCEED FOUR TIMES DAILY. 18 g 1 11/07/19 025 Discontinued(Me d list cleanup (will not trigger notification to Pharmacy)) Active Problems Problem Noted Date Diagnosed Date Elevated blood pressure read ing without diagnosis of hypertension 08/20/2023 Assessment & Plan (08/20/2023 3:31 PM EST): -Goal BP < 140/90 per JNC-8 and < 130/80 per ACC/AHA guideline (Treatment threshold >= 140/90 ) -BP not at goal -Continue working on lifestyle modifications -Recommended self-monitoring BP. 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 11/04/2015 07/02/2023 Chronic gouty arthritis 05/06/2015 07/02/19 Assessment & Plan (08/20/2023 3:24 PM EST): - continue low purine diet - continue allopurinol - continue colchicine - continue indomethacin Asthma 03/26/2015 07/02/2023 Assessment & Plan (08/20/2023 3:23 PM EST): - continue fluticasone propionate / salmeterol (Advair or Wixela) as maintenance - continue albuterol HFA prn as rescue - previously on montelukast, but no longer taking it Hidradenitis suppurativa 06/23/2013 024 Mixed dyslipidemia 10/26/2012 07/02/2023 Assessment & Plan (08/20/2023 3:30 PM EST): - history of elevated Triglyceride and low HDL - continue working on lifestyle modfications Severe obesity 10/26/2012 07/02/2023 Assessment & Plan (08/20/2023 3:27 PM EST): - continue working on lifestyle modifications - check lab for diabetes due to family history - no symptoms suggestive of SOFIA Resolved Problems Problem Noted Date Diagnosed Date Resolved Date Abscess 07/04/2023 08/20/2023 Assessment & Plan (07/04/2023 8:48 AM EST): Pt has large ,aprox 7 cm area of large induration in left buttock in superior part but also notes oozing pus when pressing in inf aspect of buttock w multiple small pockets that drain , there is as well mild erythema in sourranding tissue , no crepitants and no perineum affected VS mild tachy and elevated BP -I call today # [phone] [facility] ER -spoke w ER admitting physician and discussed case. Pt needs STAT induration drainage given size and systemic symptoms, noted mild tachycardia . Ideally image w US or CT scan to eval if indurations are tracking deeper tissues and also discussed w ER physician the possibility to have a surgeon to eval pt. -pt was referred by his PCP today for surgeon at [facility]-advised to pt to use referral if not able to get apt w a surgeon at [facility] where he had his previous care -pt understands the importance to be seen today in ER for drainage and ATB management . Pt agreed. I offered to call for ambulance but pt states he will drive himself to ER. -I took a sample from one of the purulent pockets -if MRSA will need to be considered for decolonization -pt will f up w PCP next month -but will need earlier HFU ideally ,here w elevated BP possible reactive to pain bu twill need BP to be monitor at next apt Granuloma inguinale 10/26/2012 07/02/2023 08/20/19 24 Encounters Date Type Department Care Team Description 02/20/2025 2:30 PM EDT Office Visit [facility] [address] [place] [address] Concepcion Ratliff MD Routine general medical examination at a health care facility (Primary Dx); Bunion of right foot; Bunion of left foot; Hypertriglyceridemia ; Hyperuricemia; Hypertension, unspecified type; Chronic gouty arthritis; Routine screening for STI (sexually transmitted infection) 02/20/2025 Travel 02/13/2025 Patient Outreach [facility] [address] [place], [place] [phone] Concepcion Ratliff MD Pre-visit Planning (SDOH will need to be completed in office. ) 01/17/2025 Telephone [facility] MEDIC[facility] [address] [place] [address] Concepcion Ratliff MD OUTREACH from Last 3 Months Immunizations Immunization Administration Dates Next Due Pfizer Covid-19 Vaccine 12+ 08/11/2023 Tdap 08/11/2023 Family History Medical History Relation Name Comments Diabetes type II Maternal Grandfather Cancer Neg Hx Hypertension Neg Hx Relation Name Status Comments Maternal Grandfather Social History Tobacco Use Types Packs/Day Years Used Date Smoking Tobacco: Never Passive Smoke Exposure: Never Smokeless Tobacco: Never Tobacco Cessation:Counseling Given: Not Answered Depression Answer Date Recorded Patient Health Questionnaire-9 [...] file Not on file Not on file Last Filed Vital Signs Vital Sign Reading [...] Mass Index 42.42 02/20/2025 2:48 PM EDT Plan of Treatment Upcoming Encounters Date Type Department Care Team (Late st Contact Info) Description 04/03/2025 3:45 PM EDT Office Visit [facility] [address] [place] [address] Concepcion Ratliff MD [address] [place] [address] Health Maintenance Due Date Last Done Comments Family Planning (PISQ) 01/16/2000 HPV Vaccines (1 - Male 3-dose series) 01/16/2000 Pneumococcal Vaccine: Pediatrics (0 to 5 Years) and At-Risk Patients (6 to 49) Years (2 of 2 - PCV) 05/01/2012 05/01/2011, 10/12/2005 COVID-19 Vaccine (2024- season) 2025 08/11/2023, 07/01/2021, 10/12/2020, Additional history exists Influenza Vaccine (#1) 2025 7, 05/01/2011, 08/06/2008 Alcohol/Substance Use Screening 02/20/2026 02/20/2025 Depression Screening 02/20/2026 02/20/2025, 02/21/20 25 Disability Screening 02/20/2026 02/20/2025 SDOH Screening 02/20/2026 02/20/2025 Tobacco Screening 02/20/2026 02/20/2025 Lipid Panel 03/28/2026 03/28/2021 DTaP/Tdap/Td Vaccines (3 - Td or Tdap) 08/11/2033 08/11/2023, 05/01/2011, 07/18/2007 Zoster Vaccines (1 of 2) 2035 RSV Patients and Patients Aged 60 years or older (1 - 1-dose 75+ series) 01/16/2060 Hepatitis B Vaccines Completed 09/08/2016, 11/04/2015, 12/28/2014 HIV Screening Completed 03/28/2021 Hepatitis C Screening Completed 03/28/2021 HIB Vaccines Aged Out No longer eligi ble based on patient's age to complete this topic Hepatitis A Vaccines Aged Out No long er eligible based on patient's age to complete this topic IPV Vaccines Aged Out No longer eligi ble based on patient's age to complete this topic Meningococcal B Vaccine Aged Out No l onger eligible based on patient's age to complete this topic Meningococcal Vaccine Aged Out No genia oswaldo eligible based on patient's age to complete this topic RSV under 20 months Aged Out No longe r eligible based on patient's age to complete this topic Rotavirus Vaccines Aged Out No longer eligible based on patient's age to complete this topic Procedures Procedure Name Priority Date/Time Associated Diagnosis Comments XR FOOT 3+ VIEWS LEFT Routine 02/20/2025 3:09 PM EDT Bunion of left foot XR FOOT 3+ VIEWS RIGHT Routine 02/20/2025 3:07 PM EDT Bunion of right foot ZZZ HISTORICAL HEPATITIS C AB W/REFL TO HCV RNA, QN, PCR Routine 03/28/2021 3:24 PM EDT HIV 1/2 ANTIGEN/ANTIBODY, FOURTH GENERATION W/RFL Routine 03/28/2021 3:24 PM EDT LIPID PANEL, STANDARD Routine 03/28/2021 3:24 PM EDT from Last 3 Months or Most Recently Relevant to Health Maintenance Results * XR Foot 3+ Views Left (02/20/2025 3:09 PM EDT) Anatomical Region Laterality Modality Lower Extremities, Foot Left Radiogra [facility] 02/20/2025 3:09 PM EDT Narrative 02/20/2025 4:25 PM EDT [address] [address] XRay Report Signed Patient: Saurabh Benavidez MR#: [id number] : 1985 Acct:[id number] Age/Sex: 40 / M ADM Date: 02/20/25 Loc: HO.HHCX Attending Dr: Concepcion Ratilff MD Ordering Physician: Concepcion Ratliff MD Date of Service: 02/20/25 Procedure(s): XR foot LT min 3V Accession Number(s): [id number] cc: Concepcion Ratliff MD Reason for Exam: [...] 02/20/25 1622 DD/ 1509 TD/TT: 02/20/25 1510 Seat Joiner Chainstitch: Procedure Note Donotuseinterpreter, Image - 02/20/2025 [place] [address] XRay Report Signed Patient: Saurabh Benavidez AMR#: [id number] : 1985Acct:[id number] Age/Sex: 40 / MADM Date: 02/20/25 Loc: HO.HHCX Attending Dr: Concepcion Ratliff MD Ordering Physician: Concepcion Ratliff MD Date of Service: 02/20/25 Procedure(s): XR foot LT min 3V Accession Number(s): [id number] cc: Concepcion Ratliff MD Reason for Exam: [...] 02/20/25 1622 DD/ 1509 TD/TT: 02/20/25 1510 Seat Joiner Chainstitch: Concepcion Ratliff MD IMG XR PROCEDURES Final Result * XR Foot 3+ Views Right (02/20/2025 3:07 PM EDT) Anatomical Region Laterality Modality Lower Extremities, Foot Right Radiogra phic Imaging 02/20/2025 3:07 PM EDT Narrative 02/20/2025 4:20 PM EDT [address] [address] XRay Report Signed Patient: Saurabh Benavidez MR#: [id number] : 1985 Acct:[id number] Age/Sex: 40 / M ADM Date: 02/20/25 Loc: HO.HHCX Attending Dr: Concepcion Ratliff MD Ordering Physician: Concepcion Ratliff MD Date of Service: 02/20/25 Procedure(s): XR foot RT min 3V Accession Number(s): [id number] cc: Concepcion Ratliff MD Reason for Exam: [...] 02/20/25 1617 DD/ 1507 TD/TT: 02/20/25 1510 Seat Joiner Chainstitch: Procedure Note Donotuseinterpreter, Image - 02/20/[address] [address] XRay Report Signed Patient: Saurabh Benavidez AMR#: [id number] : 1985Acct:[id number] Age/Sex: 40 / MADM Date: 02/20/25 Loc: HO.HHCX Attending Dr: Concepcion Ratliff MD Ordering Physician: Concepcion Ratliff MD Date of Service: 02/20/25 Procedure(s): XR foot RT min 3V Accession Number(s): [id number] cc: Concepcion Ratliff MD Reason for Exam: [...] 02/20/25 1617 DD/ 1507 TD/TT: 02/20/25 1510 Seat Joiner Chainstitch: us Concepcion Ratliff MD IMG XR PROCEDURES Final Result * HEPATITIS C AB W/REFL TO HCV RNA, QN, PCR (03/28/2021 3:24 PM EDT) HEPATITIS C ANTIBODY NON-REACT KEN NON-REACT KEN [facility] INDEX 0.21 <1.00 [facility] Comment: HCV antibody was non-reactive. There is no laboratory evidence of HCV infection. In most cases, no further action is required. However, if recent HCV exposure is suspected, a test for HCV RNA (test code 68387) is suggested. For additional information please refer to http://TechDevils.Ventario/faq/KOP58w3 (This link is being provided for informational/ educational purposes only.) 03/28/2021 3:24 PM EDT Concepcion Ratliff MD HISTORICAL/NON ORDERABLE LABS Fi nal Result Performing Organization Address [facility] Phone Number [facility] [address] [place] [address], * HIV 1/2 ANTIGEN/ANTIBODY,FOURTH GENERATION W/RFL (03/28/2021 3:24 PM EDT) HIV-1/2 ANTIGEN AND ANTIBODIES, 4TH GENERATION W/ REFLEX NON-REACT KEN NON-REACT KEN [facility] Comment: HIV-1 antigen and HIV-1/HIV-2 antibodies were not detected. There is no laboratory evidence of HIV infection. PLEASE NOTE: This information has been disclosed to you from records whose confidentiality may be protected by state law. If your state requires such protection, then the state law prohibits you from making any further disclosure of the information without the specific written consent of the person to whom it pertains, or as otherwise permitted by law. A general authorization for the release of medical or other information is NOT sufficient for this purpose. For additional information please refer to http://TechDevils.Recovr.[employer]/faq/YRL941 (This link is being provided for informational/ educational purposes only.) The performance of this assay has not been clinically validated in patients less than 2 years old. 03/28/2021 3:24 PM EDT us Concepcion Ratliff MD LAB BLOOD ORDERABLES Final Resul t Performing Organization Address [facility] Co la Phone Number [facility] [address] [place] [address], * (ABNORMAL) LIPID PANEL, STANDARD (03/28/2021 3:24 PM EDT) Chol/HDLC Ratio 4.7 <5.0 (calc) [facility] Cholesterol, Total 185 <200 mg/dL [facility] HDL Cholesterol 39(L) > OR = 40 mg/dL [facility] LDL Cholesterol 99 mg/dL (calc) [facility] Comment: Reference range: <100 Desirable range <100 mg/dL for primary prevention; <70 mg/dL for patients with CHD or diabetic patients with > or = 2 CHD risk factors. LDL-C is now calculated using the Silvano-Raygoza calculation, which is a validated novel method providing better accuracy than the Friedewald equation in the estimation of LDL-C. Silvano SS et al. ELISEO. 2013;310(19): 3778-2226 (http://education.[employer]/faq/XNG759) Non-HDL Cholesterol 146(H) <130 mg/dL (calc) [facility] Comment: For patients with diabetes plus 1 major ASCVD risk factor, treating to a non-HDL-C goal of <100 mg/dL (LDL-C of <70 mg/dL) is considered a therapeutic option. Triglycerides 350(H) <150 mg/dL [facility] Comment: If a non-fasting specimen was collected, consider repeat triglyceride testing on a fasting specimen if clinically indicated. Guzman et al. J. of Clin. Lipidol. 2015;9:129-169. 03/28/2021 3:24 PM EDT Concepcion Ratliff MD LAB BLOOD ORDERABLES Final Resul t [facility] [address] from Last 3 Months or Most Recently Relevant to Health Maintenance Insurance [facility] C3 * Guarantor: Saurabh Benavidez Account Type Relation to Patient Date of Phone Billing Address Personal/Family Self [address] [phone] Care Teams Livestock Slaughterer Relationship Specialty Start Date End Date Concepcion Ratliff MD [address] [place] [address] PCP - General Family Medicine 06/21/18
--- OUTSIDE RECORDS SUMMARY | 2025-02-20 16:28 | XMS_ITS | Encounter Summary ---
Author Organization [employer] Address [address] [facility] 7 [place] [address] Care Team Providers Care Esthetician Permanent Makeup Artist Name Role Phone Concepcion Ratliff MD Primary Care Provider [phone] Encounter Details Date Type Department Care Team (Late st Contact Info) Description 06/12/[address] [facility] MED & PEDS [address] [place] [address] Caren Stuart LPN Social History Tobacco Use Types Packs/Day Years [...] Description 04/03/2025 3:45 PM EDT Office Visit [facility] MEDICINE [address] [place] [address] Concepcion Ratliff MD [address] [place] [address] documented as of this encounter Visit Diagnoses Not on filedocumented in this encounter Care Teams Esthetician Permanent Makeup Artist Relationship Specialty Start Date End Date Concepcion Ratliff MD [address] [place] [address] PCP - General Family Medicine 06/21/18 documented as of this encounter
--- OUTSIDE RECORDS SUMMARY | 2025-02-20 16:28 | XMS_ITS | Encounter Summary ---
Author Organization [employer] Address [address] [facility] 7t [place] [address] Care Team Providers Care Diamond Setter Name Role Phone Concepcion Ratliff MD Primary Care Provider [phone] Encounter Details Date Type Department Care Team (Late st Contact Info) Description 11/06/2024 Orders Only [facility] MEDICINE [address] [place] [address] Concepcion Ratliff MD [address] [place] [address] Moderate asthma without complication, unspecified whether persistent [...] Description 04/03/2025 3:45 PM EDT Office Visit [facility] MEDICINE [address] [place] [address] Concepcion Ratliff MD [address] [place] [address] documented as of this encounter Visit Diagnoses Diagnosis Moderate asthma without complication, unspecified whether persistent documented in this encounter Care Teams Diamond Setter Relationship Specialty Start Date End Date Concepcion Ratliff MD [address] [place] [address] PCP - General Family Medicine 06/21/18 documented as of this encounter
--- OUTSIDE RECORDS SUMMARY | 2025-02-20 16:28 | XMS_ITS | Encounter Summary ---
Author Organization [employer] Address [address] [place] [address] 7 [place] [address] Care Team Providers Care Flue Gas Analyst Name Role Phone Concepcion Ratliff MD Primary Care Provider [phone] Reason for Referral * Imaging (Routine) - Closed Specialty Diagnoses / Procedures Referred By Ludmila rai Referred To Contact Radiology Diagnoses Left inguinal pain Left groin mass Procedures US Pelvis Limited Concepcion Ratliff MD [address] [place] [address] Phone: tel: fax: [address] Phone: tel: fax: Referral ID Status Reason Start Date Expiration Date Visits Re quested Visits Authorized [id number] Closed 09/07/2023 09/06/2024 1 1 Encounter Details Date Type Department Care Team (Late st Contact Info) Description 09/07/2023 Orders Only [facility]INE [address] [place], [place] [phone] Concepcion Ratliff MD [address] [place], [place] [phone] Left inguinal pain (Primary Dx); Left groin mass Social History Tobacco Use Types Packs/Day Years [...] Description 04/03/2025 3:45 PM EDT Office Visit [facility] [address] [place] [address] Concepcion Ratliff MD [address] [place] [phone] Scheduled Orders Name Type Priority Associated Diagnoses Orde r Schedule US Pelvis Limited Imaging Routine Left inguinal pain Left groin mass Expected: 09/07/2023, Expires: 09/06/2024 documented as of this encounter Visit Diagnoses Diagnosis Left inguinal pain- Primary Abdominal pain, left lower quadrant Left groin mass documented in this encounter Care Teams Flue Gas Analyst Relationship Specialty Start Date End Date Concepcion Ratliff MD [address] [place] [id number] PCP - General Family Medicine 06/21/18 documented as of this encounter
--- OUTSIDE RECORDS SUMMARY | 2025-02-20 16:28 | XMS_ITS | Encounter Summary ---
Author Organization [email or web address] Address [address] [place] [address] Care Team Providers Care Miner Assistant Name Role Phone Concepcion Ratliff MD Primary Care Provider [phone] Reason for Visit * Reason Comments Med Refill Encounter Details Date Type Department Care Team (Late st Contact Info) Description 06/08/2023 Refill [facility] MEDICINE [address] [place] [address] Concepcion Ratliff MD [address] [place] [address] Moderate asthma without complication, unspecified whether persistent [...] Description 04/03/2025 3:45 PM EDT Office Visit [facility] MEDICINE [address] [place] [address] Concepcion Ratliff MD [address] [place] [address] documented as of this encounter Visit Diagnoses Diagnosis Moderate asthma without complication, unspecified whether persistent documented in this encounter Care Teams Miner Assistant Relationship Specialty Start Date End Date Concepcion Ratliff MD [address] [place] [address] PCP - General Family Medicine 06/21/18 documented as of this encounter
--- OUTSIDE RECORDS SUMMARY | 2025-02-20 16:28 | XMS_ITS | Encounter Summary ---
Author Organization [employer] Address [address] [facility] 7t [place] [address] Care Team Providers Care Automatic Splicing Machine Operator Name Role Phone Concepcion Ratliff MD Primary Care Provider [phone] Encounter Details Date Type Department Care Team (Latest Contact Info) Description 02/20/2025 Travel Social History Tobacco Use Types Packs/Day Years [...] on file documented as of this encounter Functional Status * Over the past 2 weeks, how often have you been bothered by any of the following problems? Question Answer Date of Assessment Author Patient Health Questionnaire -2 Score 0 02/20/2025 2:47 PM Eun Harden [place] * Little interest or pleasure in doing things Answer Date of Assessment Author Not at all 02/20/2025 2:47 PM Lakshmi Harden MA * Feeling down, depressed, or hopeless Answer Date of Assessment Author Not at all 02/20/2025 2:47 PM Lakshmi Harden [place] * Trouble falling or staying asleep, or sleeping too much Answer Date of Assessment Author Not at all 02/20/2025 2:47 PM Lakshmi Harden MA * Feeling tired or having little energy Answer Date of Assessment Author Not at all 02/20/2025 2:47 PM Lakshmi Harden MA * Poor appetite or overeating Answer Date of Assessment Author Not at all 02/20/2025 2:47 PM Lakshmi Harden MA * Feeling bad about yourself - or that you are a failure or have let yourself or your family down Answer Date of Assessment Author Not at all 02/20/2025 2:47 PM Lakshmi Harden MA * Trouble concentrating on things, such as reading the newspaper or watching television Answer Date of Assessment Author Not at all 02/20/2025 2:47 PM Lakshmi Harden MA * Moving or speaking so slowly that other people could have noticed? Or the opposite - being so fidgety or restless that you have been moving around a lot more than usual. Answer Date of Assessment Author Not at all 02/20/2025 2:47 PM Lakshmi Harden MA * Thoughts that you would be better off or hurting yourself in some way Answer Date of Assessment Author Not at all 02/20/2025 2:47 PM EDT Lakshmi Gibbs MA * Patient Health Questionnaire-9 Score Answer Date of Assessment Author 0 02/20/2025 2:47 PM EDT Lakshmi Gibbs MA documented as of this encounter Plan of Treatment Upcoming Encounters Date Type Department Care Team (Late st Contact Info) Description 04/03/2025 3:45 PM EDT Office Visit [facility] MEDICINE [address] [facility] [place] [address] Concepcion Ratliff MD [address] [place] [address] documented as of this encounter Visit Diagnoses Not on filedocumented in this encounter Additional Health Concerns Assessment Noted Time PHQ-9 Depression Total Score: 0 02/21/20 25 2:47 PM EDT documented as of this encounter Care Teams Automatic Splicing Machine Operator Relationship Specialty Start Date End Date Concepcion Ratliff MD [address] [place] [address] [place] [address] PCP - General Family Medicine 06/21/18 documented as of this encounter
--- OUTSIDE RECORDS SUMMARY | 2025-02-20 16:28 | XMS_ITS | Encounter Summary ---
Author Organization [employer] Address [address] [facility] 7 [place] [address] Care Team Providers Care Marine Pipefitter Helper Name Role Phone Concepcion Ratliff MD Primary Care Provider [phone] Reason for Visit * Reason Onset Date Comments Nurse Triage 07/01/2023 Encounter Details Date Type Department Care Team ([facility] st Contact Info) Description 07/01/2023 Telephone [facility] MEDICINE [address] [place] [address] Concepcion Ratliff MD [address] [place] [address] Nurse Triage Social History Tobacco Use Types Packs/Day Years Used Date Smoking Tobacco: Never Assessed Sex and Gender Information Value Date Recorded Sex Assigned at Male 04/20/2022 10:18 AM EDT Legal Sex Male 10:18 AM EDT Gender Identity Male 04/20/2022 10:18 AM EDT Sexual Orientation Choose not to disclose 2021 10:18 AM EDT documented as of this encounter Miscellaneous Notes * Telephone Encounter - Brandon Redd - 07/02/2023 3:30 PM EST Tc from pt stating they were seen today @ [facility] and went to ER, pt stated they are currently still waiting at ER and would like to know if provider will prescribe antibiotics. Please contact at [phone] * Telephone Encounter - Rosa Mcclelland RN - 07/02/2023 9:27 AM EST Called pt. He states that he has [employer] but does not have his card. 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 I looked in [employer] and he is still current with his [employer] insurance Policy # is [id number]. Pt. Is going to walk in in a few minutes to have Hydradenitis looked at on his left buttock due to need for antibiotic as infection has recurred. See notes from 07/01/2023. * Telephone Encounter - Rosa Mcclelland RN - 07/01/2023 1:18 PM EST Called pt. He states that he is scheduled to have a PE on 08/16/22. Pt states he is having a bad flare up of his hydradenitis on his left buttock area and Size is 6-7 inches long by 2 inches deep. Pt.Has yellow drainage with blood daily. He cannot sit and is in pain. Pt. States that a foul odor is coming from infection site. Pt is looking for a sooner PE but also is looking for a referral to a gen tatuml surgeon as he states he was supposed to have surgery for his hydradenitis in May of 2023 but specialist that PCP referred pt. To does not do surgery on hydradenitis. Advised pt. To go to walk in today to get started on antibiotic and Told pt. I would send PCP a note to see if she can put pt. In schedule sooner for PE. Pt. Wants PE with PCP. There are some openings in schedule but not for PE slot. Please check your schedule to see if I can schedule pt. For sooner PE so that he can get referral to surgeon at [facility] jose carlos. Also requesting Ventolin inhaler refill as his is almost empty. Pt.Denies any Asthma sx. Today or SOB. Please advise. Protocol Used: Boil (Skin Abscess) (Adult) Protocol-Based Disposition: Go to Office or Video Visit Now- pt. Will go to walk in today to get hydradenitis evaluated and possible antibiotic. Positive Triage Questions: * Severe pain (e.g., excruciating) * Boil > 2 inches across (> 5 cm; larger than a golf ball or ping pong ball) * Spreading redness around the boil and no fever * All higher-acuity triage questions were negative * Telephone Encounter - Brandon Redd - 07/01/2023 1:14 PM EST Tc from pt requesting a call back, [id number] Programmer Analyst attempted to gather information however pt declined to give any details. * Telephone Encounter - Stefanie Archuleta - 07/01/2023 10:24 AM EST Pt want to speak with the nurse, no information provided to designer/writer. documented in this encounter Plan of Treatment Upcoming Encounters Date Type Department Care Team (Late st Contact Info) Description 04/03/2025 3:45 PM EDT Office Visit [facility] MEDICINE [address] [place] [address] Concepcion Ratliff MD [address] [place] [address] documented as of this encounter Visit Diagnoses Diagnosis Moderate asthma without complication, unspecified whether persistent documented in this encounter Care Teams Marine Pipefitter Helper Relationship Specialty Start Date End Date Concepcion Ratliff MD [address] [place] [address] PCP - General Family Medicine 06/21/18 documented as of this encounter
== END 2025-02-20 15:23 | disposition home or self-care (01) ==
LOC: HO.HHCX 15:22
PROVIDERS: PCP Family Medicine; Visit Provider Family Medicine
DX: M21.612 Bunion of left foot (principal); M21.611 Bunion of right foot
CPT/HCPCS: 73630

== ENCOUNTER → 2025-02-20 15:46 | Outpatient (BNV) | payer MEDICAID, SELFPAY | PROVIDERS: PCP Family Medicine; Visit Provider Radiology Diagnostic Radiology | DX: M1A.0721 Idiopathic chronic gout, left ankle and foot, with tophus (tophi) (principal); M1A.0710 Idiopathic chronic gout, right ankle and foot, without tophus (tophi) | CPT/HCPCS: 73630 ==